=== PATIENT | female | born 1930 | race Caucasian/White ===

== ENCOUNTER 2016-10-20 12:28 | Inpatient (IN) | payer OTHER, BC ==
[2016-10-16 11:08] VITALS: BMI 28.3
--- NOTE | 2016-10-20 12:29 | HP ---
History & Physical Update - History History: No Change - Physical Physical: No Change - Assessment Assessment: No Change - Plan Plan: No Change (Initial h&p is in patient's paper chart. Completed 10/16/[address] Carlo Bansal)
[2016-10-20] MEDS ORDERED: HEPARIN INFUSION - 500 ML IVPB ONE (14:12)
[2016-10-20] MEDS ORDERED: PROPOFOL 20 ML ONE ×3 (14:16)
[2016-10-20] MEDS ORDERED: HEPARIN NA (PORCINE) 5,000 UNITS/ML 1ML VIAL ONE ×4 (14:32→16:36)
[2016-10-20] MEDS ORDERED: MIDAZOLAM HCL 2 MG/2 ML SINGLE DOSE VIAL ONE ×3 (14:36→16:26)
[2016-10-20] MEDS ORDERED: SODIUM CHLORIDE IVPB ONE (14:45)
[2016-10-20] MEDS ORDERED: ALTEPLASE 50MG 25 MG in SODIUM CHLORIDE 250 ML IVPB ONE (14:45)
[2016-10-20] MEDS ORDERED: ALTEPLASE IVPB ONE (14:45)
[2016-10-20] MEDS: HEPARIN INFUSION - 500 ML IVPB SCH (14:50)
[2016-10-20] MEDS ORDERED: ceFAZolin SODIUM 1 GM VIAL ONE (15:07)
[2016-10-20] MEDS ORDERED: ceFAZolin SODIUM 1 GM VIAL IVPB ONE (15:09)
[2016-10-20] MEDS ORDERED: LIDOCAINE HCL 1%, 10 MG/ML (50 mL VIAL) IJ ONE ×2 (15:10)
[2016-10-20] MEDS ORDERED: GLYCOPYRROLATE 0.2 MG/1 ML VIAL ONE (15:20)
[2016-10-20] MEDS ORDERED: SODIUM CHLORIDE 0.9% P/F 10 ML VIAL IJ ONE (16:22)
[2016-10-20] MEDS ORDERED: IOHEXOL 300 MG/ML INFUS..BTL IV ONE (16:52)
--- NOTE | 2016-10-20 17:02 | HP ---
Admitting History and Physical - Admission History of Present Illness: 86 year old female with recent DVT of left leg. She was started on anticoagulation and discharged. She has continued to have severe edema of the entire left leg. History Source: Patient Limitations to Obtaining History: No Limitations - Smoking History Smoking history: Never smoked Have you smoked in the past 12 months: No Aproximately how many cigarettes per day: 0 - Alcohol/Substance Use Hx Alcohol Use: No Home Medications - Allergies Allergies/Adverse Reactions: Allergies Allergy/AdvReac Type Severity Reaction Status Date / Time Stock Ragweed Pollen Mixture Allergy Mild Cough Verified 09/22/16 15:26 No Known Drug Allergies Allergy Verified 09/22/16 15:26 - Home Medications Home Medications: Ambulatory Orders Paroxetine HCl [Paxil -] 20 mg PO DAILY 02/13/14 Pantoprazole Sodium [Protonix] 40 mg PO DAILY 09/22/16 Amlodipine Besylate [Norvasc -] 2.5 mg PO DAILY 10/16/16 Apixaban [Eliquis] 5 mg PO BID 10/16/16 Physical Examination Vital Signs: Vital Signs Temperature 97.9 F 10/20/16 13:12 Pulse Rate 62 10/20/16 13:12 Respiratory Rate 18 10/20/16 13:12 Blood Pressure 120/60 10/20/16 13:12 O2 Sat by Pulse Oximetry (%) 100 10/20/16 13:20 Constitutional: Yes: No Distress Eyes: Yes: WNL HENT: Yes: WNL Neck: Yes: Supple Cardiovascular: Yes: Regular Rate and Rhythm Respiratory: Yes: Regular, CTA Bilaterally Gastrointestinal: Yes: Normal Bowel Sounds, Soft Edema: Yes Edema: LLE: 4+ Problem List - Problems (1) Deep vein thrombosis (DVT) of left iliofemoral vein Assessment/Plan: Severe edema with evidence for iliofemoral DVT. Plan thrombolysis with TPA and EKOS. Code(s): I82.422 - ACUTE EMBOLISM AND THROMBOSIS OF LEFT ILIAC VEIN
[2016-10-20] MEDS ORDERED: oxyCODONE HCL 5 MG TABLET PO PRN (17:17)
[2016-10-20] MEDS ORDERED: ONDANSETRON 4 MG/2 ML VIAL IVPUSH PRN (17:17)
--- NOTE | 2016-10-20 17:20 | OP ---
Operative Note - Note: Operative Date: 10/20/16 Pre-Operative Diagnosis: DVT left leg Operation: Percutaneous thrombolysis and thrombectomy left iliofemoral vein and IVC. Placement of EKOS catheter. Findings: Patent left femoral and popliteal veins. Thrombotic occlusion of left common femoral and iliac vein. Partial thrombosis of right common iliac and distal IVC to level of leftt renal vein. Post-Operative Diagnosis: Same as Pre-op Surgeon: Neto Wheeler Gifted Program Teacher: Jennifer Reyes Anesthesiologist/HVAC MAINTENANCE TECHNICIAN: Derrick Horan Anesthesia: Fractional Estimated Blood Loss (mls): 10
--- NOTE | 2016-10-20 17:24 | SURG ---
Surgery Adult Services Librarian Note Adult Services Librarian: Jennifer Reyes PA-C Date of Service: 10/20/16 Diagnosis: DVT left leg. Procedure: Percutaneous thrombolysis and thrombectomy left iliofemoral vein and IVC. Placement of EKOS catheter. I was present for the entirety of the operative procedure. For further detail, please refer to operative report. Visit type - Case Type Case Type: Scheduled Admission - New patient This patient is new to me today: Yes Date on this admission: 10/20/16
--- NOTE | 2016-10-20 17:26 | CONSULT ---
Consult Consult Specialty:: Vascular surgery Referred by:: Dr. Wheeler Reason for Consultation:: s/p thrombectomy on heparin and tpa gtt - History of Present Illness Chief Complaint: post op History of Present Illness: 86 F PMH of HTN GERD Raynauds and DVT in the left leg went to OR today for leg leg thrombectomy with TPA thrombysis and EKOS device after persistent swelling of leg and no relief with eliquis. The DVT extends from left common femoral to IVC. She denies nausea vomiting fevers chills chest pain or sob. Denies pain has no complaints. Walks without assistance at baseline. - History Source History Provided By: Patient, Medical Record Limitations to Obtaining History: No Limitations - Past Medical History Cardio/Vascular: Yes: HTN Gastrointestinal: Yes: GERD Rheumatology: Yes: Other (Raynauds ) - Alcohol/Substance Use Hx Alcohol Use: No - Smoking History Smoking history: Never smoked Have you smoked in the past 12 months: No Aproximately how many cigarettes per day: 0 Home Medications - Allergies Allergies/Adverse Reactions: Allergies Allergy/AdvReac Type Severity Reaction Status Date / Time Stock Ragweed Pollen Mixture Allergy Mild Cough Verified 09/22/16 15:26 No Known Drug Allergies Allergy Verified 09/22/16 15:26 - Home Medications Home Medications: Ambulatory Orders Paroxetine HCl [Paxil -] 20 mg PO DAILY 02/13/14 Pantoprazole Sodium [Protonix] 40 mg PO DAILY 09/22/16 Amlodipine Besylate [Norvasc -] 2.5 mg PO DAILY 10/16/16 Apixaban [Eliquis] 5 mg PO BID 10/16/16 Review of Systems - Review of Systems Constitutional: reports: No Symptoms Eyes: reports: No Symptoms HENT: reports: No Symptoms Neck: reports: No Symptoms Cardiovascular: reports: No Symptoms Respiratory: reports: No Symptoms, Other Genitourinary: reports: No Symptoms Musculoskeletal: reports: No Symptoms Integumentary: reports: No Symptoms Neurological: reports: No Symptoms Endocrine: reports: No Symptoms Hematology/Lymphatic: reports: Other (Left Leg DVT and swelling) Physical Exam Vital Signs: Vital Signs Temperature 97.9 F 10/20/16 13:12 Pulse Rate 62 10/20/16 13:12 Respiratory Rate 18 10/20/16 13:12 Blood Pressure 120/60 10/20/16 13:12 O2 Sat by Pulse Oximetry (%) 100 10/20/16 13:20 Constitutional: Yes: Well Nourished, No Distress Eyes: Yes: WNL, EOM Intact, PERRL HENT: Yes: WNL Neck: Yes: WNL, Supple Cardiovascular: Yes: WNL, Regular Rate and Rhythm Respiratory: Yes: WNL, Regular, CTA Bilaterally Gastrointestinal: Yes: WNL, Normal Bowel Sounds Renal/: Yes: Kraft Present, Hematuria (wine colored hematuria to be expected per vascular surgery) Musculoskeletal: Yes: WNL Edema: Yes Edema: LLE: 2+ (non pitting ) Peripheral Pulses WNL: Yes (2+ RLE DP LLE DP not palpated but leg warm with good capillary refill ) Wound/Incision: Yes: Clean/Dry, Other (EKOS in place) Neurological: Yes: WNL, Alert ...Motor Strength: WNL Assessment/Plan 86F POD 0 after LLE thrombectomy and catheter directed thrombolysis. Received patient in hypertensive urgency from OR. LLE DVT s/p thrombectomy with TPA thrombolysis Continue TPA and hep gtt without titration Check PTT CBC and Fibrinogen q6h Will contact Dr. Wheeler for any issues [phone] EKOS device to go back to OR in 24 hours will keep NPO Hypertensive urgency/HTN Patient took norvasc in AM will give labetalol IVP and PRN Restart norvasc Hematuria: red wine colored urine to be expected per vascular sx will monitor for gross hematuria GERD: Restart Protonix PO Raynauds: stable FEN: start d5 1/2 NS @ 42 patient receiving 55ml/hr from gtts no electrolyte issues BNP in AM NPO except meds PPx: on Hep gtt and tpa gtt Protonix PO Bed rest for now CCT: 60 min
[2016-10-20] MEDS ORDERED: DEXTROSE 5%-0.45% SALINE 1,000 ML IV SCH ×2 (17:30→17:49)
[2016-10-20] MEDS ORDERED: LABETALOL HCL 5 MG/1 ML (100MG/20 ML VIAL) IVPUSH ONE ×2 (17:32→18:39)
[2016-10-20] MEDS ORDERED: LABETALOL HCL 5 MG/1 ML (100MG/20 ML VIAL) ONE (17:36)
[2016-10-20] MEDS ORDERED: HEPARIN NA (PORCINE) 5,000 UNITS/ML 1ML VIAL IVPUSH PRN ×2 (18:48)
[2016-10-20 18:50] LABS: MCH 30.3 pg (25.7-33.7); MCHC 32.8 g/dl (32.0-36.0); MEAN CELL VOLUME 92.5 fl (80-96); MEAN PLT VOLUME 8.9 fl (7.5-11.1); PLATELET COUNT 219 K/MM3 (134-434); RDW 14.4 % (11.6-15.6); WHITE BLOOD COUNT 7.4 K/mm3 (4.0-10.0)
[2016-10-20] MEDS: DEXTROSE 5%-0.45% SALINE 1,000 ML IV SCH (18:51)
--- NOTE | 2016-10-20 20:30 | CONSULT ---
Consult Consult Specialty:: Pulm/CC - History of Present Illness History of Present Illness: Pt is an 86yr old woman with PMHx of HTN, Raynauds syndrome, GERD. Pt with recent DVT of left leg, with inadequate response to anticoagulation therapy. She now presents to the ICU s/p percutaneous thrombolysis and thrombectomy of the left iliofemoral vein/IVC, and placement of an EKOS catheter for recovery. Upon assessment, pt denies chest pain/sob/headache/n/v/discomfort to leg. - History Source History Provided By: Patient, Medical Record Limitations to Obtaining History: No Limitations - Past Medical History Cardio/Vascular: Yes: HTN Gastrointestinal: Yes: GERD Rheumatology: Yes: Other (Raynauds ) - Alcohol/Substance Use Hx Alcohol Use: No - Smoking History Smoking history: Never smoked Have you smoked in the past 12 months: No Aproximately how many cigarettes per day: 0 Home Medications - Allergies Allergies/Adverse Reactions: Allergies Allergy/AdvReac Type Severity Reaction Status Date / Time Stock Ragweed Pollen Mixture Allergy Mild Cough Verified 09/22/16 15:26 No Known Drug Allergies Allergy Verified 09/22/16 15:26 - Home Medications Home Medications: Ambulatory Orders Paroxetine HCl [Paxil -] 20 mg PO DAILY 02/13/14 Pantoprazole Sodium [Protonix] 40 mg PO DAILY 09/22/16 Amlodipine Besylate [Norvasc -] 2.5 mg PO DAILY 10/16/16 Apixaban [Eliquis] 5 mg PO BID 10/16/16 Review of Systems - Review of Systems Cardiovascular: denies: Chest Pain, Shortness of Breath Gastrointestinal: reports: Diarrhea (2 days ago) Genitourinary: denies: Dysuria Neurological: denies: Headache Physical Exam Vital Signs: Vital Signs Period Temp Pulse Resp BP Sys/Nassar Pulse Ox Last 24 Hr 97.7 F-98.0 F 62-68 16-22 120-188/60-87 98-100 Intake & Output 10/17/16 10/18/16 10/19/16 10/20/16 23:59 23:59 23:59 23:59 Intake Total 870 Output Total 350 Balance 520 Constitutional: Yes: Well Nourished, No Distress, Calm Eyes: Yes: WNL, PERRL HENT: Yes: WNL Neck: Yes: WNL Cardiovascular: Yes: Pulse Irregular (intermittently irregular), S1, S2 Respiratory: Yes: Diminished (slightly bilaterally), On Nasal O2, Other (100% on 2LNC). No: Rhonchi, SOB, Wheezes Gastrointestinal: Yes: Normal Bowel Sounds, Soft. No: Tenderness ...Rectal Exam: Yes: Deferred Renal/: Yes: Kraft Present, Other (hematuria/wine colored output in bag. per previous note, consistent with surgical procedure) Musculoskeletal: Yes: Other (s/p lle thrombectomy) Extremities: Yes: Calf Tenderness, Erythema, Other (chronic RLE tenderness,) Edema: Yes Edema: LLE: 3+ Peripheral Pulses WNL: Yes (+2 rt pedal, +1 left pedal) Wound/Incision: Yes: Bleeding (bronson, RN states she informed Dr. Wheeler), Other (pressure dressing for bleeding at site. leg with soft brace.) Neurological: Yes: WNL Psychiatric: Yes: WNL Labs: Abnormal Lab Results 10/20/16 17:40 RBC 3.58 L Imaging - Results Chest X-ray: Pending (none, will do chest xray in a.m to access for congestion) Assessment/Plan Pt is an 86yr old woman with PMHx of HTN, Raynauds syndrome, GERD. Now in the ICU s/p percutaneous thrombolysis and thrombectomy of the left iliofemoral vein /IVC, and placement of an EKOS catheter. Pulm: -o2 support prn for sat >94% -Incentive spirometr -f/u chest xray ID: -f/u cultures -One dose given perioperatively of Unasyn, consider continuing Surgery: -Dr. Wheeler following -Wound/Surgical care, Alteplase, IVF per surgeon -Pulse checks q2 Cardiovascular: -BP control -monitor h/h Renal: -I/Os -Replete electrolytes prn Neuro: -Pain management -Continue home Paxil Prophylactic -Continue home ppi
[2016-10-20] MEDS: METOPROLOL TARTRATE 5 MG/5 ML VIAL IVPUSH ONE ×2 (22:13→23:00)
[2016-10-20] MEDS: CHLORHEXIDINE GLUCONATE 4% CLEANSER FOR DECOLONIZATION TP SCH (22:14)
[2016-10-20] MEDS: MUPIROCIN 2% TOPICAL OINTMENT FOR DECOLONIZATION NS SCH (22:15)
[2016-10-21] MEDS ORDERED: LIDOCAINE HCL 1%, 10 MG/ML (20ML VIAL) IJ ONE
[2016-10-21 00:58] LABS: MCH 29.7 pg (25.7-33.7); MCHC 32.6 g/dl (32.0-36.0); MEAN CELL VOLUME 91.3 fl (80-96); MEAN PLT VOLUME 9.3 fl (7.5-11.1); PLATELET COUNT 194 K/MM3 (134-434); RDW 14.6 % (11.6-15.6); WHITE BLOOD COUNT 7.6 K/mm3 (4.0-10.0)
[2016-10-21] MEDS ORDERED: morphine CARPU-JECT 2 MG/1 ML DISP.SYRIN IVPUSH ONE (04:45)
[2016-10-21 07:10] LABS: MCH 29.9 pg (25.7-33.7); MCHC 32.5 g/dl (32.0-36.0); MEAN CELL VOLUME 92.2 fl (80-96); MEAN PLT VOLUME 9.3 fl (7.5-11.1); PLATELET COUNT 171 K/MM3 (134-434); RDW 14.8 % (11.6-15.6); WHITE BLOOD COUNT 7.9 K/mm3 (4.0-10.0)
[2016-10-21 07:25] LABS: INR 1.15 (0.82-1.09); PROTHROMBIN TIME (PATIENT) 12.7 SEC (9.98-11.88)
[2016-10-21 07:27] LABS: ACTIVATED PTT 33.3 SECONDS (26.9-34.4)
[2016-10-21 07:53] LABS: CALCIUM 8.3 mg/dL (8.5-10.1); CREATININE 1.3 mg/dL (0.55-1.02); MAGNESIUM 1.8 mg/dL (1.8-2.4); PHOSPHOROUS 3.6 mg/dL (2.5-4.9)
--- NOTE | 2016-10-21 08:14 | PN ---
Progress Note (short form) - Note Progress Note: Vascular surgery Patient seen and examined this morning. Patient resting comfortably with no complaints. Denies pain in LLE, states her swelling has improved. Last Vital Signs Temp Pulse Resp BP Pulse Ox 98 F 62 18 109/38 96 10/21/16 06:00 10/21/16 08:00 10/21/16 08:00 10/21/16 08:00 10/21/16 06:00 CBC, BMP 10/21/16 05:27 10/21/16 05:27 INR, PTT INR 1.15 (0.82-1.09) H 10/21/16 05:27 Fibrinogen 303.0 mg/dL (238-498) 10/21/16 00:01 PE: Gen: NAD, pleasant and cooperative LLE: EKOS catheter in place, knee immobilizer in place, LE warm and well perfused : Kraft catheter in place, gross hematuria improving Problem List - Problems (1) DVT (deep venous thrombosis) Assessment/Plan: POD#1 s/p left iliofemoral vein and IVC percutaneous thrombolysis and thrombectomy with placement of EKOS catheter Plan for return to OR this afternoon for venogram/possible stent/venoplasty/ and removal of EKOS catheter Continue NPO Bedrest with knee immobilizer Continue TPA and hep gtt, PTT/CBC/Fibrinogen q6h Continue Kraft Code(s): I82.409 - ACUTE EMBOLISM AND THOMBOS UNSP DEEP VN UNSP LOWER EXTREMITY Qualifiers: DVT location: lower extremity
[2016-10-21 08:26] LABS: TROPONIN I 9.96 ng/ml (0.00-0.05)
[2016-10-21] MEDS ORDERED: ASPIRIN COATED 81 MG TABLET.EC ONE (08:43)
[2016-10-21] MEDS ORDERED: ASPIRIN 325 MG TABLET PO ONE (08:45)
[2016-10-21] MEDS ORDERED: METOPROLOL SUCCINATE 25 MG TAB.SR.24H (FP) ONE (08:58)
[2016-10-21] MEDS: METOPROLOL SUCCINATE 25 MG TAB.SR.24H (FP) PO SCH (08:59)
[2016-10-21] MEDS: MUPIROCIN 2% TOPICAL OINTMENT FOR DECOLONIZATION NS SCH ×2 (09:33→21:47)
[2016-10-21] MEDS: PANTOPRAZOLE 40 MG TABLET (FP) PO SCH (09:33)
[2016-10-21] MEDS: amLODIPine BESYLATE 2.5 MG TABLET (FP) PO SCH (09:33)
[2016-10-21] MEDS: ASPIRIN 81 MG CHEWABLE TABLETS PO SCH (10:38)
--- NOTE | 2016-10-21 11:02 | PN ---
Progress Note, Physician History of Present Illness: patient had Chest pain around 5AM found to have elevated troponin and EKG changes Given aspirin 81mg this AM started on metoprolol Echo ordered denies CP at this time - Current Medication List Current Medications: Active Medications Amlodipine Besylate (Norvasc -) 2.5 mg PO DAILY [facility] Last Admin: 10/21/16 09:33 Dose: 2.5 mg Aspirin (Asa -) 81 mg PO DAILY [facility] Last Admin: 10/21/16 10:38 Dose: 81 mg Chlorhexidine Gluconate (Hibiclens For Decolonization -) 1 applic TP HS [facility] Last Admin: 10/20/16 22:14 Dose: 1 applic Heparin Sodium (Porcine) (Heparin -) 1,000 unit IVPUSH PRN PRN PRN Reason: Heparin Heparin Sodium (Porcine) (Heparin -) 5,000 unit IVPUSH PRN PRN PRN Reason: Heparin Alteplase, Recombinant 25 mg/ (Sodium Chloride) 250 mls @ 10.417 mls/hr IVPB TITR ONE Stop: 10/21/16 14:44 Last Admin: 10/20/16 14:50 Dose: 10.417 mls/hr Dextrose/Sodium Chloride (D5-1/2ns -) 1,000 mls @ 50 mls/hr IV ASDIR [facility] Last Admin: 10/20/16 18:51 Dose: 50 mls/hr Heparin Sodium/Dextrose (Heparin Infusion -) 500 mls @ 10 mls/hr IVPB TITR [facility] ; 500 UNITS/HR PRN Reason: Protocol Last Admin: 10/20/16 14:50 Dose: 10 mls/hr Metoprolol Succinate (Toprol Xl -) 25 mg PO DAILY [facility] Last Admin: 10/21/16 08:59 Dose: 25 mg Mupirocin (Bactroban Ointment (For Decolonization) -) 1 applic NS BID [facility] Stop: 10/25/16 21:59 Last Admin: 10/21/16 09:33 Dose: 1 applic Oxycodone HCl (Roxicodone -) 5 mg PO Q6H PRN PRN Reason: PAIN Last Admin: 10/21/16 00:16 Dose: 5 mg Pantoprazole Sodium (Protonix -) 40 mg PO DAILY [facility] Last Admin: 10/21/16 09:33 Dose: 40 mg - Objective Vital Signs: Vital Signs Temperature 99 F 12/28/16 10:00 Pulse Rate 61 10/21/16 10:22 Respiratory Rate 18 10/21/16 10:00 Blood Pressure 110/36 10/21/16 10:00 O2 Sat by Pulse Oximetry (%) 96 10/21/16 10:22 Constitutional: Yes: Well Nourished, No Distress Eyes: Yes: WNL, EOM Intact, PERRL HENT: Yes: WNL Neck: Yes: WNL, Supple Cardiovascular: Yes: WNL, Regular Rate and Rhythm Respiratory: Yes: WNL, Regular, CTA Bilaterally Gastrointestinal: Yes: WNL, Normal Bowel Sounds Renal/: Yes: Kraft Present, Hematuria cleared Musculoskeletal: Yes: WNL Edema: Yes Edema: LLE: 2+ (non pitting ) Peripheral Pulses WNL: Yes (2+ RLE DP LLE DP not palpated but leg warm with good capillary refill ) Wound/Incision: Yes: Clean/Dry, Other (EKOS in place) Neurological: Yes: WNL, Alert ...Motor Strength: WNL Labs: CBC, BMP 10/21/16 05:27 10/21/16 05:27 INR, PTT INR 1.15 (0.82-1.09) H 10/21/16 05:27 Fibrinogen 254.0 mg/dL (238-498) 10/21/16 05:27 Assessment/Plan 86F POD 0 after LLE thrombectomy and catheter directed thrombolysis. Received patient in hypertensive urgency from OR. ACS questionable NSTEMI will Give Aspirin ECHO Metoprolol patient on TPA and hep gtt will continue and will medically manage ACS for now will trend enzymes to document peak persantine myoview once vascular issues resolved Cardiology consult Dr. Keating aware Dr. wheeler aware possible patient could have a PE will get CTA tomorrow if Cr goes back down LLE DVT s/p thrombectomy with TPA thrombolysis Continue TPA and hep gtt without titration Check PTT CBC and Fibrinogen q6h Will contact Dr. Wheeler for any issues [phone] EKOS device to go back to OR today will keep NPO JJ: likely prerenal will monitor for now IVF hydration Hypertensive urgency/HTN Patient took norvasc in AM will give labetalol IVP and PRN Restart norvasc Hematuria: red wine colored urine to be expected per vascular sx resolving GERD: Restart Protonix PO Raynauds: stable FEN: continue d5 1/2 NS @ 50 patient also receiving 55ml/hr from gtts no electrolyte issues BNP in AM NPO except meds PPx: on Hep gtt and tpa gtt Protonix PO Bed rest for now CCT: 60 min
--- NOTE | 2016-10-21 11:10 | PN ---
Progress Note, Physician Chief Complaint: s/p angiography and thrombectomy under MAC History of Present Illness: post op day one - Current Medication List Current Medications: Active Medications Amlodipine Besylate (Norvasc -) 2.5 mg PO DAILY [facility] Last Admin: 10/21/16 09:33 Dose: 2.5 mg Aspirin (Asa -) 81 mg PO DAILY [facility] Last Admin: 10/21/16 10:38 Dose: 81 mg Chlorhexidine Gluconate (Hibiclens For Decolonization -) 1 applic TP HS [facility] Last Admin: 10/20/16 22:14 Dose: 1 applic Heparin Sodium (Porcine) (Heparin -) 1,000 unit IVPUSH PRN PRN PRN Reason: Heparin Heparin Sodium (Porcine) (Heparin -) 5,000 unit IVPUSH PRN PRN PRN Reason: Heparin Alteplase, Recombinant 25 mg/ (Sodium Chloride) 250 mls @ 10.417 mls/hr IVPB TITR ONE Stop: 10/21/16 14:44 Last Admin: 10/20/16 14:50 Dose: 10.417 mls/hr Dextrose/Sodium Chloride (D5-1/2ns -) 1,000 mls @ 50 mls/hr IV ASDIR [facility] Last Admin: 10/20/16 18:51 Dose: 50 mls/hr Heparin Sodium/Dextrose (Heparin Infusion -) 500 mls @ 10 mls/hr IVPB TITR [facility] ; 500 UNITS/HR PRN Reason: Protocol Last Admin: 10/20/16 14:50 Dose: 10 mls/hr Metoprolol Succinate (Toprol Xl -) 25 mg PO DAILY [facility] Last Admin: 10/21/16 08:59 Dose: 25 mg Mupirocin (Bactroban Ointment (For Decolonization) -) 1 applic NS BID [facility] Stop: 10/25/16 21:59 Last Admin: 10/21/16 09:33 Dose: 1 applic Oxycodone HCl (Roxicodone -) 5 mg PO Q6H PRN PRN Reason: PAIN Last Admin: 10/21/16 00:16 Dose: 5 mg Pantoprazole Sodium (Protonix -) 40 mg PO DAILY [facility] Last Admin: 10/21/16 09:33 Dose: 40 mg - Objective Vital Signs: Vital Signs Temperature 99 F 10/21/16 10:00 Pulse Rate 61 10/21/16 10:22 Respiratory Rate 18 10/21/16 10:00 Blood Pressure 110/36 10/21/16 10:00 O2 Sat by Pulse Oximetry (%) 96 10/21/16 10:22 Constitutional: Yes: Well Nourished Cardiovascular: Yes: WNL Respiratory: Yes: WNL Gastrointestinal: Yes: WNL Labs: CBC, BMP 10/21/16 05:27 10/21/16 05:27 INR, PTT INR 1.15 (0.82-1.09) H 10/21/16 05:27 Fibrinogen 254.0 mg/dL (238-498) 10/21/16 05:27 Assessment/Plan patient doing well, no adverse effects of ethe anesthetic, no nausea, vomiting, pain controlled. dept of anesthesia will sign off care at this time
[2016-10-21 12:00] LABS: MCH 30.7 pg (25.7-33.7); MCHC 33.1 g/dl (32.0-36.0); MEAN CELL VOLUME 92.7 fl (80-96); MEAN PLT VOLUME 8.5 fl (7.5-11.1); PLATELET COUNT 150 K/MM3 (134-434); RDW 14.8 % (11.6-15.6); WHITE BLOOD COUNT 7.1 K/mm3 (4.0-10.0)
--- NOTE | 2016-10-21 12:00 | CONSULT ---
Consult Consult Specialty:: Cardiology Referred by:: Neto Wheeler MD Reason for Consultation:: Post-procedure NSTEMI - History of Present Illness Chief Complaint: Chest pain History of Present Illness: Pt is an 86yr old woman with PMHx of HTN, Raynauds syndrome, GERD, recent DVT of left leg, with inadequate response to anticoagulation therapy for which she underwent percutaneous thrombolysis and thrombectomy of the left iliofemoral vein/IVC, and placement of an EKOS catheter for recovery. Overnight developed chest tightness since resolved without associated dyspnea, palpitations, near or true syncope, orthopnea, PND or LE edema. She does report episode of retrosternal chest pressure, choking and dyspnea prior to procedure. - History Source History Provided By: Patient Limitations to Obtaining History: No Limitations - Past Medical History Cardio/Vascular: Yes: HTN Gastrointestinal: Yes: GERD Rheumatology: Yes: Other (Raynauds ) - Alcohol/Substance Use Hx Alcohol Use: No - Smoking History Smoking history: Never smoked Have you smoked in the past 12 months: No Aproximately how many cigarettes per day: 0 Home Medications - Allergies Allergies/Adverse Reactions: Allergies Allergy/AdvReac Type Severity Reaction Status Date / Time Stock Ragweed Pollen Mixture Allergy Mild Cough Verified 09/22/16 15:26 No Known Drug Allergies Allergy Verified 09/22/16 15:26 - Home Medications Home Medications: Ambulatory Orders Paroxetine HCl [Paxil -] 20 mg PO DAILY 02/13/14 Pantoprazole Sodium [Protonix] 40 mg PO DAILY 09/22/16 Amlodipine Besylate [Norvasc -] 2.5 mg PO DAILY 10/16/16 Apixaban [Eliquis] 5 mg PO BID 10/16/16 Review of Systems - Review of Systems Cardiovascular: reports: Chest Pain, Shortness of Breath Vital Signs: Vital Signs Temperature 99 F 10/21/16 10:00 Pulse Rate 61 10/21/16 10:22 Respiratory Rate 18 10/21/16 10:00 Blood Pressure 110/36 10/21/16 10:00 O2 Sat by Pulse Oximetry (%) 96 10/21/16 10:22 Constitutional: Yes: No Distress, Calm, Thin Respiratory: Yes: Regular, Diminished, On Nasal O2 Gastrointestinal: Yes: Normal Bowel Sounds, Soft Cardiovascular: Yes: Regular Rate and Rhythm JVD: No Carotid Bruit: No Heart Sounds: Yes: S1, S2 Murmur: Yes: Systolic Murmur, Grade 1 Edema: No - Other Data Labs, Other Data: CBC, BMP 10/21/16 05:27 INR, PTT INR 1.15 (0.82-1.09) H 10/21/16 05:27 Fibrinogen 254.0 mg/dL (238-498) 10/21/16 05:27 Troponin, BNP 10/20/16 10/21/16 10/21/16 20:45 05:27 05:27 Troponin I Cancelled 9.96 H* Cancelled Troponin, BNP 10/20/16 10/21/16 10/21/16 20:45 05:27 05:27 Troponin I Cancelled 9.96 H* Cancelled NSR inferior ischemic changes Ejection Fraction %: LVEF > or = 40 % Imaging - Results Chest X-ray: Report Reviewed (Mild congestion) Problem List - Problems (1) Deep vein thrombosis (DVT) of left iliofemoral vein Code(s): I82.422 - ACUTE EMBOLISM AND THROMBOSIS OF LEFT ILIAC VEIN (2) Pulmonary embolus Code(s): I26.99 - OTHER PULMONARY EMBOLISM WITHOUT ACUTE COR PULMONALE Qualifiers: Pulmonary embolism type: other Chronicity: acute (3) Demand ischemia Code(s): I24.8 - OTHER FORMS OF ACUTE ISCHEMIC HEART DISEASE (4) Hypertension Code(s): I10 - ESSENTIAL (PRIMARY) HYPERTENSION Qualifiers: Hypertension type: essential hypertension Qualified Code(s): I10 - Essential (primary) hypertension (5) [id number] kidney injury Code(s): N17.9 - ACUTE KIDNEY FAILURE, UNSPECIFIED N18.9 - CHRONIC KIDNEY DISEASE, UNSPECIFIED Assessment/Plan 09/23/2016 Echo: Normal LV size and fxn, mod-severe MAX, mod MR, severe TR, RVSP 50-60 mmHg, mild AR 1. Chest pain syndrome with demand ischemic injury suspect pulmonary embolism 2. Extensive left DVT post thrombolysis and thrombectomy left iliofemoral vein and IVC. Placement of EKOS catheter. 3. HTN 4. Acute on CKD referable to hemodynamic alterations P:1. Cycle cardiac enzymes to document peak, check BNP, monitor renal recovery 2. Echo to assess ventricular and valve fxn 3. ASA 81 qd, Norvasc 2.5 qd, Toprol XL 25 qd, heparin and TPA course per vascular, eventually resume Eliquis 5 bid 4. Repeat chest CTA once clinically stable 5. Thank you for consultative opportunity
[2016-10-21 12:41] LABS: TROPONIN I 7.48 ng/ml (0.00-0.05)
[2016-10-21] MEDS ORDERED: BACITRACIN 30 GM TUBE TOPICAL OINTMENT ONE (13:13)
--- NOTE | 2016-10-21 14:33 | PN ---
Teaching Attending Note Name of Resident: Jani Corral ATTENDING PHYSICIAN STATEMENT I saw and evaluated the patient. I reviewed the resident's note and discussed the case with the resident. I agree with the resident's findings and plan as documented. SUBJECTIVE: Pt seen and examined in the ICU. Chest discomfort overnight. Troponins positive this AM, questionable changes in inferior leads. OBJECTIVE: Last Vital Signs Temp Pulse Resp BP Pulse Ox 99 F 66 16 107/36 96 10/21/16 10:00 10/21/16 14:00 10/21/16 14:00 10/21/16 14:00 10/21/16 10:22 Intake & Output 10/18/16 10/19/16 10/20/16 10/21/16 23:59 23:59 23:59 23:59 Intake Total 1350 870 Output Total 550 400 Balance 800 470 Weight 163 lb 11.2 oz 162 lb Gen: NAD at rest Heart: RRR Lung: decreased breath sounds at the bases Abd: soft, nontender Ext: no edema CBC, BMP 10/21/16 11:45 10/21/16 05:27 Active Medications Amlodipine Besylate (Norvasc -) 2.5 mg PO DAILY [facility] Last Admin: 10/21/16 09:33 Dose: 2.5 mg Aspirin (Asa -) 81 mg PO DAILY [facility] Last Admin: 10/21/16 10:38 Dose: 81 mg Chlorhexidine Gluconate (Hibiclens For Decolonization -) 1 applic TP HS [facility] Last Admin: 10/20/16 22:14 Dose: 1 applic Heparin Sodium (Porcine) (Heparin -) 1,000 unit IVPUSH PRN PRN PRN Reason: Heparin Heparin Sodium (Porcine) (Heparin -) 5,000 unit IVPUSH PRN PRN PRN Reason: Heparin Alteplase, Recombinant 25 mg/ (Sodium Chloride) 250 mls @ 10.417 mls/hr IVPB TITR ONE Stop: 10/21/16 14:44 Last Admin: 10/20/16 14:50 Dose: 10.417 mls/hr Dextrose/Sodium Chloride (D5-1/2ns -) 1,000 mls @ 50 mls/hr IV ASDIR NENO Last Admin: 10/20/16 18:51 Dose: 50 mls/hr Heparin Sodium/Dextrose (Heparin Infusion -) 500 mls @ 10 mls/hr IVPB TITR NENO ; 500 UNITS/HR PRN Reason: Protocol Last Admin: 10/20/16 14:50 Dose: 10 mls/hr Metoprolol Succinate (Toprol Xl -) 25 mg PO DAILY [facility] Last Admin: 10/21/16 08:59 Dose: 25 mg Mupirocin (Bactroban Ointment (For Decolonization) -) 1 applic NS BID [facility] Stop: 10/25/16 21:59 Last Admin: 10/21/16 09:33 Dose: 1 applic Oxycodone HCl (Roxicodone -) 5 mg PO Q6H PRN PRN Reason: PAIN Last Admin: 10/21/16 00:16 Dose: 5 mg Pantoprazole Sodium (Protonix -) 40 mg PO DAILY [facility] Last Admin: 10/21/16 09:33 Dose: 40 mg Pneumococcal 13-Valent Conj Vacc (Prevnar 13 Syringe -) 0.5 ml IM .ONCE ONE Stop: 10/21/16 11:54 ASSESSMENT AND PLAN: Extensive LLE DVT s/p thrombectomy/thrombolysis Likely PE +Troponins likely from demand ischemia vs PE Pulmonary HTN Acute on Chronic Renal Failure HTN - continue tPA, heparin - resume ASA when ok with surgery - beta cynthia, statin - for OR today for catheter removal - IVF - monitor urine output, creatinine - will consider CTA chest when renal function improves - trend cardiac enzymes, EKGs - echocardiogram - O2 - nitrates as needed - continue ICU montoring
[2016-10-21] MEDS ORDERED: PNEUMOC 13-VAL CONJ-DIP CRM/PF 0.5 ML DISP.SYRIN IM ONE (16:45)
--- NOTE | 2016-10-21 17:04 | EKG ---
Test Reason : Blood Pressure : / mmHG Vent. Rate : 063 BPM Atrial Rate : 063 BPM P-R Int : 144 ms QRS Dur : 080 ms QT Int : 470 ms P-R-T Axes : 051 -05 092 degrees QTc Int : 480 ms NORMAL SINUS RHYTHM WITH SINUS ARRHYTHMIA LOW VOLTAGE QRS T WAVE ABNORMALITY, CONSIDER ANTERIOR ISCHEMIA PROLONGED QT ABNORMAL ECG NO PREVIOUS ECGS AVAILABLE Confirmed by SEGUNDO VELASCO, FABIANO ([id number]) on 10/21/2016 5:04:42 PM Referred By: Neto Wheeler Overread By: FABIANO RAYMOND MD
--- NOTE | 2016-10-21 17:06 | EKG ---
Test Reason : Blood Pressure : / mmHG Vent. Rate : 063 BPM Atrial Rate : 063 BPM P-R Int : 154 ms QRS Dur : 076 ms QT Int : 496 ms P-R-T Axes : 066 000 121 degrees QTc Int : 507 ms SINUS RHYTHM WITH MARKED SINUS ARRHYTHMIA LOW VOLTAGE QRS CANNOT RULE OUT ANTERIOR INFARCT , AGE UNDETERMINED ABNORMAL ECG WHEN COMPARED WITH ECG OF 21-OCT-2016 04:59, NO SIGNIFICANT CHANGE WAS FOUND Confirmed by SEGUNDO VELASCO, FABIANO ([id number]) on 10/21/2016 5:05:37 PM Referred By: Neto Wheeler Overread By: FABIANO RAYMOND MD
--- NOTE | 2016-10-21 17:13 | EKG ---
Test Reason : Blood Pressure : / mmHG Vent. Rate : 061 BPM Atrial Rate : 061 BPM P-R Int : 142 ms QRS Dur : 072 ms QT Int : 470 ms P-R-T Axes : 057 010 090 degrees QTc Int : 473 ms NORMAL SINUS RHYTHM WITH SINUS ARRHYTHMIA LOW VOLTAGE QRS CANNOT RULE OUT ANTERIOR INFARCT (CITED ON OR BEFORE 21-OCT-2016) ABNORMAL ECG WHEN COMPARED WITH ECG OF 21-OCT-2016 09:03, NO SIGNIFICANT CHANGE WAS FOUND Confirmed by FABIANO RAYMOND MD ([id number]) on 10/21/2016 5:13:23 PM Referred By: Neto Wheeler Overread By: FABIANO RAYMOND MD
[2016-10-21] MEDS ORDERED: MIDAZOLAM HCL 2 MG/2 ML SINGLE DOSE VIAL ONE ×2 (17:35)
[2016-10-21] MEDS ORDERED: PROPOFOL 20 ML ONE ×5 (17:36)
[2016-10-21] MEDS ORDERED: ceFAZolin SODIUM 1 GM VIAL IVPB ONE (17:53)
[2016-10-21] MEDS ORDERED: HEPARIN NA (PORCINE) 5,000 UNITS/ML 1ML VIAL ONE (18:14)
[2016-10-21] MEDS ORDERED: KETOROLAC TROMETHAMINE 30 MG/1 ML VIAL ONE (18:14)
[2016-10-21] MEDS ORDERED: ceFAZolin SODIUM 1 GM VIAL ONE (18:14)
[2016-10-21] MEDS ORDERED: ACETAMINOPHEN INJECTION 100 ML IVPB ONE (18:16)
[2016-10-21] MEDS ORDERED: LIDOCAINE 1%/EPI 1:100000 (50 ML MULTI DOSE VIAL) ONE (18:48)
[2016-10-21] MEDS ORDERED: LIDOCAINE 1%/EPI 1:100000 (50 ML MULTI DOSE VIAL) PNB ONE ×3 (19:00)
[2016-10-21] MEDS ORDERED: PROMETHAZINE HCL 25 MG/1 ML VIAL IVPUSH PRN (19:35)
[2016-10-21] MEDS ORDERED: ONDANSETRON 4 MG/2 ML VIAL IVPUSH PRN (19:35)
--- NOTE | 2016-10-21 19:38 | OP ---
Operative Note - Note: Operative Date: 10/21/16 Pre-Operative Diagnosis: DVT left femoral, iliac and IVC Operation: Completion venoplasty and stenting of left femoral and iliac veins and IVC. Findings: Following 24 hr TPA infusion there was partial lysis of left femoral and iliac thrombus. The IVC remained partially occluded distal to the renal veins. Implants: 16 mm x 60 mm Wall stent in left common iliac vein. 10 mm x 60 mm LifeStar stent in left external iliac and common femoral vein. Post-Operative Diagnosis: Same as Pre-op Surgeon: Neto Wheeler Pediatric Physical Therapy Assistant: Pat Juan Anesthesiologist/TOUCHER UP: Adria Swift Anesthesia: Fractional Estimated Blood Loss (mls): 50
[2016-10-21] MEDS: HEPARIN INFUSION - 500 ML IVPB SCH ×2 (20:00→21:48)
[2016-10-21] MEDS: DEXTROSE 5%-0.45% SALINE 1,000 ML IV SCH (20:00)
[2016-10-21] MEDS ORDERED: HEPARIN INFUSION - 500 ML IVPB ONE (20:03)
[2016-10-21] MEDS: CHLORHEXIDINE GLUCONATE 4% CLEANSER FOR DECOLONIZATION TP SCH (21:47)
[2016-10-22 02:32] LABS: MCH 29.6 pg (25.7-33.7); MCHC 32.2 g/dl (32.0-36.0); MEAN PLT VOLUME 9.3 fl (7.5-11.1); PLATELET COUNT 128 K/MM3 (134-434); RDW 14.7 % (11.6-15.6); WHITE BLOOD COUNT 7.1 K/mm3 (4.0-10.0)
[2016-10-22 03:32] LABS: TROPONIN I 3.86 ng/ml (0.00-0.05)
--- NOTE | 2016-10-22 07:10 | PN ---
Progress Note (short form) - Note Progress Note: Pt without complaints of CP/COB. Vital Signs Period Temp Pulse Resp BP Sys/Nassar Pulse Ox Last 24 Hr 97.4 F-100 F 18-66 16-18 92-116/35-80 96-100 UOP-1200ml clear/yellow urine PE GEN: appears comfortable CV: RRR Lungs: CTA b/l anteriorly ABD: soft, non-distended, non-tender LE: Left leg with mild swelling, warm with DP pulse with doppler. Azar wrap on LLE, replaced with nicholas stocking and azar above the knee. No ecchymosis noted posterior to the knee. Right leg: no swelling, foot warm. Applied Nicholas stocking. CBC, BMP 10/22/16 01:42 10/21/16 05:27 Laboratory Tests 10/21/16 10/21/16 10/22/16 05:27 11:45 01:42 PTT (Actin FS) Troponin I 9.96 H* 7.48 H* 3.86 H* 10/22/16 01:42 PTT (Actin FS) 111.1 H D Troponin I Problem List - Problems (1) Deep vein thrombosis (DVT) of left iliofemoral vein Assessment/Plan: 86 yo female with h/0 DVT left femoral, iliac and IVC s/p percutaneous thrombolysis with completion venoplasty and stenting of left femoral and iliac veins and IVC. Now with elevated troponins(decreasing)and being monitored by cardiology, Her CP which has improved was felt to be demand ischemia. She remains on IV heparin with PTT to be recheked this am, as well as BMP/ troponins Her H&H dropped and she is receiving one unit of PRBC S/w Dr. Wheeler, will begin coumadin this evening the patient may be oob to chair, discontinue oneal Code(s): I82.422 - ACUTE EMBOLISM AND THROMBOSIS OF LEFT ILIAC VEIN
--- NOTE | 2016-10-22 09:38 | PN ---
Progress Note (short form) - Note Progress Note: ANESTHESIA POST-OP CHECK 86F s/p removal of EKOS catheter and angiogram/angioplasty under MAC/sedation anesthesia, POD #1. No acute complaints. Denies pain, N/V. Tolerating PO diet. Not yet OOB, oneal in place. Vital Signs Temperature 98.3 F 10/22/16 06:00 Pulse Rate 63 10/22/16 08:00 Respiratory Rate 15 10/22/16 08:00 Blood Pressure 114/46 10/22/16 08:00 O2 Sat by Pulse Oximetry (%) 100 10/22/16 08:00 Active Medications Amlodipine Besylate (Norvasc -) 2.5 mg PO DAILY [facility] Last Admin: 10/21/16 09:33 Dose: 2.5 mg Aspirin (Asa -) 81 mg PO DAILY [facility] Last Admin: 10/21/16 10:38 Dose: 81 mg Chlorhexidine Gluconate (Hibiclens For Decolonization -) 1 applic TP HS [facility] Last Admin: 10/21/16 21:47 Dose: 1 applic Heparin Sodium (Porcine) (Heparin -) 1,000 unit IVPUSH PRN PRN PRN Reason: Heparin Heparin Sodium (Porcine) (Heparin -) 5,000 unit IVPUSH PRN PRN PRN Reason: Heparin Dextrose/Sodium Chloride (D5-1/2ns -) 1,000 mls @ 50 mls/hr IV ASDIR NENO Last Admin: 10/21/16 20:00 Dose: 50 mls/hr Heparin Sodium/Dextrose (Heparin Infusion -) 500 mls @ 10 mls/hr IVPB TITR NENO ; 500 UNITS/HR PRN Reason: Protocol Last Titration: 10/22/16 03:00 Dose: 0 units/hr Metoprolol Succinate (Toprol Xl -) 25 mg PO DAILY [facility] Last Admin: 10/21/16 08:59 Dose: 25 mg Mupirocin (Bactroban Ointment (For Decolonization) -) 1 applic NS BID [facility] Stop: 10/25/16 21:59 Last Admin: 10/21/16 21:47 Dose: 1 applic Oxycodone HCl (Roxicodone -) 5 mg PO Q6H PRN PRN Reason: PAIN Last Admin: 10/21/16 00:16 Dose: 5 mg Pantoprazole Sodium (Protonix -) 40 mg PO DAILY [facility] Last Admin: 10/21/16 09:33 Dose: 40 mg Gen: awake, alert No apparent anesthesia complications. Pain well controlled, continue management as per primary team.
[2016-10-22 10:09] LABS: BASOPHIL 0.7 % (0-2.0); MCH 30.5 pg (25.7-33.7); MCHC 33.1 g/dl (32.0-36.0); MEAN CELL VOLUME 92.2 fl (80-96); NEUTROPHILS 72.7 % (42.8-82.8); PLATELET COUNT 134 K/MM3 (134-434); RDW 14.5 % (11.6-15.6)
[2016-10-22] MEDS: ASPIRIN 81 MG CHEWABLE TABLETS PO SCH (10:43)
[2016-10-22] MEDS: amLODIPine BESYLATE 2.5 MG TABLET (FP) PO SCH (10:44)
[2016-10-22] MEDS: PANTOPRAZOLE 40 MG TABLET (FP) PO SCH (10:44)
[2016-10-22] MEDS: MUPIROCIN 2% TOPICAL OINTMENT FOR DECOLONIZATION NS SCH ×2 (10:44→22:00)
[2016-10-22] MEDS: METOPROLOL SUCCINATE 25 MG TAB.SR.24H (FP) PO SCH (10:44)
[2016-10-22 10:53] LABS: INR 1.27 (0.82-1.09)
[2016-10-22 10:56] LABS: ACTIVATED PTT 62.8 SECONDS (26.9-34.4)
--- NOTE | 2016-10-22 11:03 | PN ---
Progress Note, Physician History of Present Illness: No further chest tightness or dyspnea, underwent completion venoplasty and stenting of left femoral and iliac veins and IVC without sequelae. - Current Medication List Current Medications: Active Medications Amlodipine Besylate (Norvasc -) 2.5 mg PO DAILY [facility] Last Admin: 10/22/16 10:44 Dose: 2.5 mg Aspirin (Asa -) 81 mg PO DAILY [facility] Last Admin: 10/22/16 10:43 Dose: 81 mg Chlorhexidine Gluconate (Hibiclens For Decolonization -) 1 applic TP HS [facility] Last Admin: 10/21/16 21:47 Dose: 1 applic Heparin Sodium (Porcine) (Heparin -) 1,000 unit IVPUSH PRN PRN PRN Reason: Heparin Heparin Sodium (Porcine) (Heparin -) 5,000 unit IVPUSH PRN PRN PRN Reason: Heparin Dextrose/Sodium Chloride (D5-1/2ns -) 1,000 mls @ 50 mls/hr IV ASDIR [facility] Last Admin: 10/21/16 20:00 Dose: 50 mls/hr Heparin Sodium/Dextrose (Heparin Infusion -) 500 mls @ 10 mls/hr IVPB TITR NENO ; 500 UNITS/HR PRN Reason: Protocol Last Titration: 10/22/16 03:00 Dose: 0 units/hr Metoprolol Succinate (Toprol Xl -) 25 mg PO DAILY [facility] Last Admin: 10/22/16 10:44 Dose: 25 mg Mupirocin (Bactroban Ointment (For Decolonization) -) 1 applic NS BID [facility] Stop: 10/25/16 21:59 Last Admin: 10/22/16 10:44 Dose: 1 applic Oxycodone HCl (Roxicodone -) 5 mg PO Q6H PRN PRN Reason: PAIN Last Admin: 10/21/16 00:16 Dose: 5 mg Pantoprazole Sodium (Protonix -) 40 mg PO DAILY [facility] Last Admin: 10/22/16 10:44 Dose: 40 mg Warfarin Sodium (Coumadin -) 10 mg PO ONCE@1800 ONE Stop: 10/22/16 18:01 - Objective Vital Signs: Vital Signs Temperature 98.4 F 10/22/16 10:00 Pulse Rate 72 10/22/16 10:00 Respiratory Rate 222 H 10/22/16 10:00 Blood Pressure 110/44 10/22/16 10:00 O2 Sat by Pulse Oximetry (%) 100 10/22/16 08:00 Constitutional: Yes: No Distress, Calm Neck: Yes: Supple Cardiovascular: Yes: Regular Rate and Rhythm Respiratory: Yes: Regular, Diminished, On Nasal O2 Gastrointestinal: Yes: Normal Bowel Sounds, Soft Edema: Yes Edema: LLE: 1+ Labs: CBC, BMP 10/22/16 09:40 10/22/16 09:40 INR, PTT INR 1.15 (0.82-1.09) H 10/21/16 05:27 Fibrinogen 216.0 mg/dL (238-498) L 10/21/16 11:45 Problem List - Problems (1) Deep vein thrombosis (DVT) of left iliofemoral vein Code(s): I82.422 - ACUTE EMBOLISM AND THROMBOSIS OF LEFT ILIAC VEIN (2) Pulmonary embolus Code(s): I26.99 - OTHER PULMONARY EMBOLISM WITHOUT ACUTE COR PULMONALE Qualifiers: Pulmonary embolism type: other Chronicity: acute (3) Demand ischemia Code(s): I24.8 - OTHER FORMS OF ACUTE ISCHEMIC HEART DISEASE (4) Hypertension Code(s): I10 - ESSENTIAL (PRIMARY) HYPERTENSION Qualifiers: Hypertension type: essential hypertension Qualified Code(s): I10 - Essential (primary) hypertension (5) [id number] kidney injury Code(s): N17.9 - ACUTE KIDNEY FAILURE, UNSPECIFIED N18.9 - CHRONIC KIDNEY DISEASE, UNSPECIFIED (6) Anemia Code(s): D64.9 - ANEMIA, UNSPECIFIED Assessment/Plan 09/23/2016 Echo: Normal LV size and fxn, mod-severe MAX, mod MR, severe TR, RVSP 50-60 mmHg, mild AR 10/21/2016 Echo: Normal LV size with mild cLVH and preserved systolic fxn, mild- mod MAX, mild LAE, mod-severe TR RVSP 50-60 mmHg, mild AR 1. Chest pain syndrome with demand ischemic injury suspect pulmonary embolism 2. Extensive left DVT post thrombolysis and thrombectomy left iliofemoral vein and IVC. Completion venoplasty and stenting of left femoral and iliac veins and IVC. 3. HTN 4. Acute on CKD referable to hemodynamic alterations 5. Anemia post transfusion 6. Pulm HTN P:1. Cardiac enzymes have peaked, check BNP, monitor renal recovery, Hgb post transfusion 2. Echo findings unchanged from previous study 3. ASA 81 qd, Norvasc 2.5 qd, Toprol XL 25 qd, heparin->coumadin per INR 4. Repeat chest CTA once clinically stable
[2016-10-22 11:06] LABS: ALBUMIN 2.4 g/dl (3.4-5.0); BILIRUBIN,TOTAL 0.9 mg/dL (0.2-1.0); CALCIUM 7.9 mg/dL (8.5-10.1); CREATININE 1.3 mg/dL (0.55-1.02); MAGNESIUM 1.7 mg/dL (1.8-2.4); PHOSPHOROUS 2.8 mg/dL (2.5-4.9); TOT PROT 4.8 g/dl (6.4-8.2)
[2016-10-22 11:23] LABS: TROPONIN I 3.33 ng/ml (0.00-0.05)
--- NOTE | 2016-10-22 13:38 | PN ---
Progress Note, Physician History of Present Illness: went to the OR again yesterday for removal of sheath and stenting of the LLE - Current Medication List Current Medications: Active Medications Amlodipine Besylate (Norvasc -) 2.5 mg PO DAILY [facility] Last Admin: 10/22/16 10:44 Dose: 2.5 mg Aspirin (Asa -) 81 mg PO DAILY [facility] Last Admin: 10/22/16 10:43 Dose: 81 mg Chlorhexidine Gluconate (Hibiclens For Decolonization -) 1 applic TP HS [facility] Last Admin: 10/21/16 21:47 Dose: 1 applic Heparin Sodium (Porcine) (Heparin -) 1,000 unit IVPUSH PRN PRN PRN Reason: Heparin Heparin Sodium (Porcine) (Heparin -) 5,000 unit IVPUSH PRN PRN PRN Reason: Heparin Dextrose/Sodium Chloride (D5-1/2ns -) 1,000 mls @ 50 mls/hr IV ASDIR [facility] Last Admin: 10/21/16 20:00 Dose: 50 mls/hr Heparin Sodium/Dextrose (Heparin Infusion -) 500 mls @ 10 mls/hr IVPB TITR NENO ; 500 UNITS/HR PRN Reason: Protocol Last Titration: 10/22/16 03:00 Dose: 0 units/hr Metoprolol Succinate (Toprol Xl -) 25 mg PO DAILY [facility] Last Admin: 10/22/16 10:44 Dose: 25 mg Mupirocin (Bactroban Ointment (For Decolonization) -) 1 applic NS BID [facility] Stop: 10/25/16 21:59 Last Admin: 10/22/16 10:44 Dose: 1 applic Oxycodone HCl (Roxicodone -) 5 mg PO Q6H PRN PRN Reason: PAIN Last Admin: 10/21/16 00:16 Dose: 5 mg Pantoprazole Sodium (Protonix -) 40 mg PO DAILY [facility] Last Admin: 10/22/16 10:44 Dose: 40 mg Warfarin Sodium (Coumadin -) 10 mg PO ONCE@1800 ONE Stop: 10/22/16 18:01 - Objective Vital Signs: Vital Signs Temperature 98.4 F 10/22/16 10:00 Pulse Rate 70 10/22/16 12:00 Respiratory Rate 18 10/22/16 12:00 Blood Pressure 92/37 10/22/16 12:00 O2 Sat by Pulse Oximetry (%) 100 10/22/16 12:58 Constitutional: Yes: Well Nourished, No Distress Eyes: Yes: WNL, EOM Intact, PERRL HENT: Yes: WNL Neck: Yes: WNL, Supple Cardiovascular: Yes: WNL, Regular Rate and Rhythm Respiratory: Yes: WNL, Regular, CTA Bilaterally Gastrointestinal: Yes: WNL, Normal Bowel Sounds Renal/: Yes: Oneal Present, Hematuria cleared Musculoskeletal: Yes: WNL Edema: Yes Edema: LLE: 2+ (non pitting ) Peripheral Pulses WNL: Yes (2+ RLE DP LLE DP not palpated but leg warm with good capillary refill ) Wound/Incision: Yes: Clean/Dry, Other Neurological: Yes: WNL, Alert ...Motor Strength: WNL Labs: CBC, BMP 10/22/16 09:40 10/22/16 09:40 INR, PTT INR 1.27 (0.82-1.09) H 10/22/16 09:40 Fibrinogen 216.0 mg/dL (238-498) L 10/21/16 11:45 Assessment/Plan 86F Post op after LLE thrombectomy and catheter directed thrombolysis. Received patient in hypertensive urgency from OR. ACS questionable NSTEMI ECHO Metoprolol patient on TPA and hep gtt will continue and will medically manage ACS for now will trend enzymes to document peak persantine myoview once vascular issues resolved cardiology consult appreciated possible patient could have a PE will get CTA continue aspirin 81mg LLE DVT s/p thrombectomy with TPA thrombolysis on Hep gtt Check PTT q6h trend CBC Will contact Dr. Wheeler for any issues [phone] Start coumadin today no more eliquis Anemia: s/p 1 unit PRBC trend CBC appropriate response JJ: likely prerenal will monitor for now Hypertensive urgency/HTN continue norvasc continue metoprolol Restart norvasc Hematuria: rine to be expected per vascular sx resolving GERD: Restart Protonix PO Raynauds: stable FEN: Stop IVF no electrolyte issues BNP in AM NPO except meds PPx: on Hep gtt and tpa gtt Protonix PO OOB D/C oneal CCT: 35 min
[2016-10-22] MEDS ORDERED: HEPARIN NA (PORCINE) 5,000 UNITS/ML 1ML VIAL IVPUSH PRN ×4 (13:50)
--- NOTE | 2016-10-22 14:25 | PN ---
Teaching Attending Note Name of Resident: Jani Corral ATTENDING PHYSICIAN STATEMENT I saw and evaluated the patient. I reviewed the resident's note and discussed the case with the resident. I agree with the resident's findings and plan as documented. SUBJECTIVE: Patient seen and examined in the ICU. Denies CP or SOB. No abdominal pain. Troponin levels decreasing. OBJECTIVE: Intake & Output 10/19/16 10/20/16 10/21/16 10/22/16 23:59 23:59 23:59 23:59 Intake Total 1350 2770 681 Output Total 550 1300 1100 Balance 800 1470 -419 Weight 163 lb 11.2 oz 162 lb 162 lb 4 oz Last Vital Signs Temp Pulse Resp BP Pulse Ox 98.4 F 70 18 92/37 100 10/22/16 10:00 10/22/16 12:00 10/22/16 12:00 10/22/16 12:00 10/22/16 12:58 Active Medications Amlodipine Besylate (Norvasc -) 2.5 mg PO DAILY [facility] Aspirin (Asa -) 81 mg PO DAILY [facility] Chlorhexidine Gluconate (Hibiclens For Decolonization -) 1 applic TP HS [facility] Heparin Sodium (Porcine) (Heparin -) 1,000 unit IVPUSH PRN PRN PRN Reason: Heparin Heparin Sodium (Porcine) (Heparin -) 5,000 unit IVPUSH PRN PRN PRN Reason: Heparin Heparin Sodium/Dextrose (Heparin Infusion -) 500 mls @ 10 mls/hr IVPB TITR NENO ; 500 UNITS/HR PRN Reason: Protocol Metoprolol Succinate (Toprol Xl -) 25 mg PO DAILY [facility] Mupirocin (Bactroban Ointment (For Decolonization) -) 1 applic NS BID [facility] Stop: 10/25/16 21:59 Oxycodone HCl (Roxicodone -) 5 mg PO Q6H PRN PRN Reason: PAIN Pantoprazole Sodium (Protonix -) 40 mg PO DAILY [facility] Warfarin Sodium (Coumadin -) 10 mg PO ONCE@1800 ONE Stop: 10/22/16 18:01 Gen: NAD at rest Heart: RRR Lung: decreased breath sounds at the bases Abd: soft, nontender Ext: no edema Laboratory Results - last 24 hr 10/21/16 10/21/16 10/22/16 11:45 11:45 01:42 WBC RBC Hgb Hct MCV MCHC RDW Plt Count MPV Neutrophils % Lymphocytes % Monocytes % Eosinophils % Basophils % INR PTT (Actin FS) 36.4 H Fibrinogen 216.0 L Sodium Potassium Chloride Carbon Dioxide Anion Gap BUN Creatinine Creat Clearance w eGFR Random Glucose Calcium Phosphorus Magnesium Total Bilirubin AST ALT Alkaline Phosphatase Creatine Kinase 59 Troponin I 3.86 H* B-Natriuretic Peptide Total Protein Albumin Blood Type Antibody Screen Crossmatch 10/22/16 10/22/16 10/22/16 01:42 01:42 04:00 WBC 7.1 RBC 2.49 L Hgb 7.4 L D Hct 22.9 L D MCV 92.0 MCHC 32.2 RDW 14.7 Plt Count 128 L MPV 9.3 Neutrophils % Lymphocytes % Monocytes % Eosinophils % Basophils % INR PTT (Actin FS) 111.1 H D Fibrinogen Sodium Potassium Chloride Carbon Dioxide Anion Gap BUN Creatinine Creat Clearance w eGFR Random Glucose Calcium Phosphorus Magnesium Total Bilirubin AST ALT Alkaline Phosphatase Creatine Kinase Troponin I B-Natriuretic Peptide Total Protein Albumin Blood Type A POSITIVE Antibody Screen Negative Crossmatch See Detail 10/22/16 10/22/16 10/22/16 04:00 09:40 09:40 WBC 9.0 RBC 3.11 L D Hgb 9.5 L D Hct 28.7 L D MCV 92.2 MCHC 33.1 RDW 14.5 Plt Count 134 MPV 9.0 Neutrophils % 72.7 Lymphocytes % 10.6 Monocytes % 9.0 Eosinophils % 7.0 H Basophils % 0.7 INR 1.27 H PTT (Actin FS) 62.8 H D Fibrinogen Sodium Potassium Chloride Carbon Dioxide Anion Gap BUN Creatinine Creat Clearance w eGFR Random Glucose Calcium Phosphorus Magnesium Total Bilirubin AST ALT Alkaline Phosphatase Creatine Kinase Troponin I B-Natriuretic Peptide Total Protein Albumin Blood Type A POSITIVE Antibody Screen Crossmatch 10/22/16 09:40 WBC RBC Hgb Hct MCV MCHC RDW Plt Count MPV Neutrophils % Lymphocytes % Monocytes % Eosinophils % Basophils % INR PTT (Actin FS) Fibrinogen Sodium 145 Potassium 3.8 Chloride 112 H Carbon Dioxide 25 Anion Gap 8 BUN 19 H Creatinine 1.3 H Creat Clearance w eGFR 39.02 Random Glucose 116 H Calcium 7.9 L Phosphorus 2.8 D Magnesium 1.7 L Total Bilirubin 0.9 D AST 28 D ALT 18 D Alkaline Phosphatase 122 H D Creatine Kinase 61 Troponin I 3.33 H* B-Natriuretic Peptide 3093.42 H Total Protein 4.8 L Albumin 2.4 L Blood Type Antibody Screen Crossmatch ASSESSMENT AND PLAN: Extensive LLE DVT s/p thrombectomy/thrombolysis Likely PE +Troponins likely from demand ischemia vs PE Pulmonary HTN Acute on Chronic Renal Failure HTN - AC - ASA - beta cynthia, statin - PO as tolerated - O2 as needed - Follow INR - Telemetry monitoring Dr Koroma CCTime 35"
[2016-10-22] MEDS ORDERED: PT OWN MED DRAWER 7, Y5N ONE (17:11)
[2016-10-22] MEDS: HEPARIN INFUSION - 500 ML IVPB SCH (17:16)
[2016-10-22] MEDS ORDERED: WARFARIN NA 10 MG TABLET (FP) PO ONE ×2 (18:00)
[2016-10-22] MEDS: CHLORHEXIDINE GLUCONATE 4% CLEANSER FOR DECOLONIZATION TP SCH (22:00)
[2016-10-23 07:26] LABS: INR 1.26 (0.82-1.09); PROTHROMBIN TIME (PATIENT) 13.9 SEC (9.98-11.88)
[2016-10-23] MEDS: PARoxetine HCL 20 MG TABLET (FP) PO SCH (09:30)
[2016-10-23] MEDS: PANTOPRAZOLE 40 MG TABLET (FP) PO SCH (09:31)
[2016-10-23] MEDS: METOPROLOL SUCCINATE 25 MG TAB.SR.24H (FP) PO SCH (09:31)
[2016-10-23] MEDS: amLODIPine BESYLATE 2.5 MG TABLET (FP) PO SCH (09:31)
[2016-10-23] MEDS: ASPIRIN 81 MG CHEWABLE TABLETS PO SCH (09:31)
[2016-10-23] MEDS: HEPARIN INFUSION - 500 ML IVPB SCH ×2 (09:31→14:51)
[2016-10-23] MEDS: MUPIROCIN 2% TOPICAL OINTMENT FOR DECOLONIZATION NS SCH ×2 (09:32→22:06)
--- NOTE | 2016-10-23 10:57 | PN ---
Progress Note (short form) - Note Progress Note: PULMONARY OFFERS NO COMPLAINTS OF SOB/PLEURITIC PAIN APPEARS COMFORTABLE VSS/AFEBRILE ANICTERIC CHEST CLEAR S1S2 BS+ SOFT LEFT LOWER EXT EDEMA S/P THROMBECTOMY LABS/MEDS/NOTES/IMAGING REVIEWED Extensive LLE DVT s/p thrombectomy/thrombolysis Likely PE +Troponins likely from demand ischemia vs PE Pulmonary HTN Acute on Chronic Renal Failure HTN - AC - ASA - beta cynthia, statin - PO as tolerated - O2 as needed - Follow INR - Telemetry monitoring Pari TERRELL MD
--- NOTE | 2016-10-23 12:52 | PN ---
Progress Note, Physician History of Present Illness: Denies chest pain or dyspnea, LLE edema improved post intervention. - Current Medication List Current Medications: Active Medications Amlodipine Besylate (Norvasc -) 2.5 mg PO DAILY [facility] Last Admin: 10/23/16 09:31 Dose: 2.5 mg Aspirin (Asa -) 81 mg PO DAILY [facility] Last Admin: 10/23/16 09:31 Dose: 81 mg Chlorhexidine Gluconate (Hibiclens For Decolonization -) 1 applic TP HS [facility] Last Admin: 10/22/16 22:00 Dose: Not Given Heparin Sodium (Porcine) (Heparin -) 1,000 unit IVPUSH PRN PRN PRN Reason: Heparin Heparin Sodium (Porcine) (Heparin -) 5,000 unit IVPUSH PRN PRN PRN Reason: Heparin Heparin Sodium/Dextrose (Heparin Infusion -) 500 mls @ 10 mls/hr IVPB TITR [facility] ; 500 UNITS/HR PRN Reason: Protocol Last Admin: 10/23/16 09:31 Dose: 17 mls/hr Metoprolol Succinate (Toprol Xl -) 25 mg PO DAILY [facility] Last Admin: 10/23/16 09:31 Dose: 25 mg Mupirocin (Bactroban Ointment (For Decolonization) -) 1 applic NS BID [facility] Stop: 10/25/16 21:59 Last Admin: 10/23/16 09:32 Dose: Not Given Oxycodone HCl (Roxicodone -) 5 mg PO Q6H PRN PRN Reason: PAIN Pantoprazole Sodium (Protonix -) 40 mg PO DAILY [facility] Last Admin: 10/23/16 09:31 Dose: 40 mg Paroxetine HCl (Paxil -) 20 mg PO DAILY [facility] Last Admin: 10/23/16 09:30 Dose: 20 mg - Objective Vital Signs: Vital Signs Temperature 98.2 F 10/23/16 08:27 Pulse Rate 67 10/23/16 08:27 Respiratory Rate 18 10/23/16 08:27 Blood Pressure 127/69 10/23/16 08:27 O2 Sat by Pulse Oximetry (%) 100 10/23/16 08:27 Constitutional: Yes: No Distress, Calm Neck: Yes: Supple Cardiovascular: Yes: Regular Rate and Rhythm Respiratory: Yes: Regular, Diminished, On Nasal O2 Gastrointestinal: Yes: Normal Bowel Sounds, Soft Edema: Yes Edema: LLE: 1+ Labs: CBC, BMP 10/22/16 09:40 10/22/16 09:40 INR, PTT INR 1.26 (0.82-1.09) H 10/23/16 05:35 Fibrinogen 216.0 mg/dL (238-498) L 10/21/16 11:45 - ....Imaging EKG: Report Reviewed (Tele shows bursts of PAF) Problem List - Problems (1) Deep vein thrombosis (DVT) of left iliofemoral vein Code(s): I82.422 - ACUTE EMBOLISM AND THROMBOSIS OF LEFT ILIAC VEIN (2) Pulmonary embolus Code(s): I26.99 - OTHER PULMONARY EMBOLISM WITHOUT ACUTE COR PULMONALE Qualifiers: Pulmonary embolism type: other Chronicity: acute (3) Demand ischemia Code(s): I24.8 - OTHER FORMS OF ACUTE ISCHEMIC HEART DISEASE (4) Hypertension Code(s): I10 - ESSENTIAL (PRIMARY) HYPERTENSION Qualifiers: Hypertension type: essential hypertension Qualified Code(s): I10 - Essential (primary) hypertension (5) Fegvd-[id number]-cajyamn kidney injury Code(s): N17.9 - ACUTE KIDNEY FAILURE, UNSPECIFIED N18.9 - CHRONIC KIDNEY DISEASE, UNSPECIFIED (6) Anemia Code(s): D64.9 - ANEMIA, UNSPECIFIED (7) Paroxysmal atrial fibrillation Code(s): I48.0 - PAROXYSMAL ATRIAL FIBRILLATION Assessment/Plan 09/23/2016 Echo: Normal LV size and fxn, mod-severe MAX, mod MR, severe TR, RVSP 50-60 mmHg, mild AR 10/21/2016 Echo: Normal LV size with mild cLVH and preserved systolic fxn, mild- mod MAX, mild LAE, mod-severe TR RVSP 50-60 mmHg, mild AR 1. Chest pain syndrome with demand ischemic injury suspect pulmonary embolism 2. Extensive left DVT post thrombolysis and thrombectomy left iliofemoral vein and IVC. Completion venoplasty and stenting of left femoral and iliac veins and IVC. 3. HTN 4. Acute on CKD referable to hemodynamic alterations 5. Anemia post transfusion 6. Pulm HTN 7. PAF->SR P: 1. ASA 81 qd, Norvasc 2.5 qd, Toprol XL 25 qd, heparin->coumadin per INR 2. Repeat chest CTA once clinically stable
[2016-10-23 13:23] LABS: BASOPHIL 1.1 % (0-2.0); EOSINOPHIL 9.4 % (0-4.5); MCH 30.5 pg (25.7-33.7); MCHC 33.1 g/dl (32.0-36.0); MEAN PLT VOLUME 9.4 fl (7.5-11.1); PLATELET COUNT 148 K/MM3 (134-434); RDW 14.3 % (11.6-15.6)
[2016-10-23 13:54] LABS: CALCIUM 7.9 mg/dL (8.5-10.1); CREATININE 1.2 mg/dL (0.55-1.02)
--- NOTE | 2016-10-23 15:07 | PN ---
Progress Note (short form) - Note Progress Note: Pt without any CP/SOB. Vital Signs Period Temp Pulse Resp BP Sys/Nassar Pulse Ox Last 24 Hr 98.0 F-98.5 F 61-69 18-22 114-141/42-69 100-100 PE: GEN: NAD ABD: soft, non-distended. non-tender. Left leg: decreased swelling, Palpable DP pulse. Knee hi Lesly stocking in place. Right leg: No swelling, warm. Lesly stocking in place to knee. CBC, BMP 10/23/16 12:50 10/23/16 12:50 INR, PTT INR 1.26 (0.82-1.09) H 10/23/16 05:35 Fibrinogen 216.0 mg/dL (238-498) L 10/21/16 11:45 Problem List - Problems (1) Deep vein thrombosis (DVT) of left iliofemoral vein Assessment/Plan: s/p percutaneous thrombolysis/ left iliac/femoral stent venoplasty INR 1.3 today, cont IV heparin and transition to coumadin. 10mg given, 5 mg ordered for this pm oob to chair diet as tolerated Cont Lesly stocking b/l continue all oral medications Code(s): I82.422 - ACUTE EMBOLISM AND THROMBOSIS OF LEFT ILIAC VEIN
[2016-10-23] MEDS ORDERED: WARFARIN NA 5 MG TABLET (UD) PO SCH (18:00)
[2016-10-23] MEDS: CHLORHEXIDINE GLUCONATE 4% CLEANSER FOR DECOLONIZATION TP SCH (22:06)
[2016-10-24 08:03] LABS: MCHC 33.8 g/dl (32.0-36.0); MEAN CELL VOLUME 91.9 fl (80-96); MEAN PLT VOLUME 10.1 fl (7.5-11.1); PLATELET COUNT 134 K/MM3 (134-434); RDW 14.7 % (11.6-15.6); WHITE BLOOD COUNT 5.9 K/mm3 (4.0-10.0)
[2016-10-24 08:15] LABS: ACTIVATED PTT 67.5 SECONDS (26.9-34.4)
[2016-10-24] MEDS: METOPROLOL SUCCINATE 25 MG TAB.SR.24H (FP) PO SCH (10:01)
[2016-10-24] MEDS: amLODIPine BESYLATE 2.5 MG TABLET (FP) PO SCH (10:01)
[2016-10-24] MEDS: PANTOPRAZOLE 40 MG TABLET (FP) PO SCH (10:01)
[2016-10-24] MEDS: ASPIRIN 81 MG CHEWABLE TABLETS PO SCH (10:01)
[2016-10-24] MEDS: PARoxetine HCL 20 MG TABLET (FP) PO SCH (10:01)
[2016-10-24] MEDS: MUPIROCIN 2% TOPICAL OINTMENT FOR DECOLONIZATION NS SCH ×2 (10:01→22:02)
[2016-10-24] MEDS: oxyCODONE HCL 5 MG TABLET PO PRN ×2 (10:03→18:40)
[2016-10-24 10:46] LABS: MCH 30.6 pg (25.7-33.7); MEAN CELL VOLUME 92.9 fl (80-96); MEAN PLT VOLUME 9.2 fl (7.5-11.1); PLATELET COUNT 150 K/MM3 (134-434); RDW 14.5 % (11.6-15.6); WHITE BLOOD COUNT 7.4 K/mm3 (4.0-10.0)
[2016-10-24 11:11] LABS: INR 2.31 (0.82-1.09); PROTHROMBIN TIME (PATIENT) 25.9 SEC (9.98-11.88)
--- NOTE | 2016-10-24 11:50 | PN ---
Progress Note (short form) - Note Progress Note: VSS Left leg swelling improved. Beginning to ambulate. INR 2.3 today Stop Heparin Recheck INR tomorrow Problem List - Problems (1) Deep vein thrombosis (DVT) of left iliofemoral vein Code(s): I82.422 - ACUTE EMBOLISM AND THROMBOSIS OF LEFT ILIAC VEIN
--- NOTE | 2016-10-24 15:52 | PN ---
Progress Note, Physician Chief Complaint: Not in distress Tolerating therapy History of Present Illness: Patient was seen and examined. Awake and alert. Chart was reviewed Denies chest pain, SOB or palpitations - Current Medication List Current Medications: Active Medications Amlodipine Besylate (Norvasc -) 2.5 mg PO DAILY [facility] Last Admin: 10/24/16 10:01 Dose: 2.5 mg Aspirin (Asa -) 81 mg PO DAILY [facility] Last Admin: 10/24/16 10:01 Dose: 81 mg Chlorhexidine Gluconate (Hibiclens For Decolonization -) 1 applic TP HS [facility] Last Admin: 10/23/16 22:06 Dose: Not Given Heparin Sodium/Dextrose (Heparin Infusion -) 500 mls @ 10 mls/hr IVPB TITR [facility] ; 500 UNITS/HR PRN Reason: Protocol Last Admin: 10/23/16 14:51 Dose: Not Given Metoprolol Succinate (Toprol Xl -) 25 mg PO DAILY [facility] Last Admin: 10/24/16 10:01 Dose: 25 mg Mupirocin (Bactroban Ointment (For Decolonization) -) 1 applic NS BID [facility] Stop: 10/25/16 21:59 Last Admin: 10/24/16 10:01 Dose: Not Given Oxycodone HCl (Roxicodone -) 5 mg PO Q6H PRN PRN Reason: PAIN Last Admin: 10/24/16 10:03 Dose: 5 mg Pantoprazole Sodium (Protonix -) 40 mg PO DAILY [facility] Last Admin: 10/24/16 10:01 Dose: 40 mg Paroxetine HCl (Paxil -) 20 mg PO DAILY [facility] Last Admin: 10/24/16 10:01 Dose: 20 mg Warfarin Sodium (Coumadin -) 3 mg PO DAILY@1800 [facility] - Objective Vital Signs: Vital Signs Temperature 98.5 F 10/24/16 14:46 Pulse Rate 71 10/24/16 14:46 Respiratory Rate 20 10/24/16 14:46 Blood Pressure 112/60 10/24/16 14:46 O2 Sat by Pulse Oximetry (%) 94 L 10/24/16 10:46 Neck: Yes: Supple Cardiovascular: Yes: Regular Rate and Rhythm, S1, S2 Respiratory: Yes: CTA Bilaterally Gastrointestinal: Yes: Normal Bowel Sounds, Soft. No: Tenderness Edema: No Additional Findings/Remarks: Review of Systems Constitutional: Denies: Chills or Fever Cardiovascular: Denies chest pain, SOB or palpitations Respiratory: Denies: Cough or Sputum Production, no hemoptysis Gastrointestinal: Denies: Diarrhea, Constipation or Abdominal Pain Genitourinary: No symptoms reported Neuro: No seizures or syncope Labs: CBC, BMP 10/24/16 10:30 10/23/16 12:50 INR, PTT INR 2.31 (0.82-1.09) H D 10/24/16 06:00 Fibrinogen 216.0 mg/dL (238-498) L 10/21/16 11:45 Problem List - Problems (1) Deep vein thrombosis (DVT) of left iliofemoral vein Code(s): I82.422 - ACUTE EMBOLISM AND THROMBOSIS OF LEFT ILIAC VEIN (2) Demand ischemia Code(s): I24.8 - OTHER FORMS OF ACUTE ISCHEMIC HEART DISEASE (3) Paroxysmal atrial fibrillation Code(s): I48.0 - PAROXYSMAL ATRIAL FIBRILLATION (4) Hypertension Code(s): I10 - ESSENTIAL (PRIMARY) HYPERTENSION Qualifiers: Hypertension type: essential hypertension Qualified Code(s): I10 - Essential (primary) hypertension Assessment/Plan 1. Chest pain syndrome with demand ischemic injury - probable PTE 2. Extensive left DVT post thrombolysis and thrombectomy left iliofemoral vein and IVC. Completion venoplasty and stenting of left femoral and iliac veins and IVC. 3. HTN 4. Acute on CKD referable to hemodynamic alterations 5. Anemia post transfusion 6. Pulm HTN 7. PAF currently in sinus rhythm PLAN: 1. ASA 81 mg QD, Norvasc 2.5 mg QD and Toprol XL 25 mg QD 2. Troponins are trending down and currently she is not having chest pain. Consider obtaining chest CTA once clinically stable to rule out PE 3. Further cardiac work up to rule out CAD once clinically stable. Echocardiography report reviewed with pulmonary HTN 4. Continue IV Heparin and Coumadin per INR Further plans are to follow Angel Hutchinson MD
[2016-10-24] MEDS: WARFARIN NA 3 MG TABLET PO SCH (17:36)
[2016-10-24] MEDS: HEPARIN INFUSION - 500 ML IVPB SCH (17:36)
[2016-10-24] MEDS: CHLORHEXIDINE GLUCONATE 4% CLEANSER FOR DECOLONIZATION TP SCH (22:02)
[2016-10-25] MEDS: oxyCODONE HCL 5 MG TABLET PO PRN ×2 (06:44→18:38)
[2016-10-25 07:35] LABS: INR 3.01 (0.82-1.09); PROTHROMBIN TIME (PATIENT) 33.9 SEC (9.98-11.88)
[2016-10-25] MEDS: METOPROLOL SUCCINATE 25 MG TAB.SR.24H (FP) PO SCH (10:18)
[2016-10-25] MEDS: ASPIRIN 81 MG CHEWABLE TABLETS PO SCH (10:18)
[2016-10-25] MEDS: PARoxetine HCL 20 MG TABLET (FP) PO SCH (10:19)
[2016-10-25] MEDS: PANTOPRAZOLE 40 MG TABLET (FP) PO SCH (10:19)
[2016-10-25] MEDS: amLODIPine BESYLATE 2.5 MG TABLET (FP) PO SCH (10:19)
[2016-10-25] MEDS: MUPIROCIN 2% TOPICAL OINTMENT FOR DECOLONIZATION NS SCH (13:41)
[2016-10-25] MEDS ORDERED: ACETAMINOPHEN 325 MG TABLET (FP) PO PRN (14:59)
--- NOTE | 2016-10-25 17:18 | PN ---
Progress Note, Physician Chief Complaint: Not in distress Tolerating therapy History of Present Illness: Patient was seen and examined. Awake and alert. Chart was reviewed Denies chest pain, SOB or palpitations febrile - Current Medication List Current Medications: Active Medications Acetaminophen (Tylenol -) 650 mg PO Q6H PRN PRN Reason: FEVER OR PAIN Last Admin: 10/25/16 15:18 Dose: 650 mg Amlodipine Besylate (Norvasc -) 2.5 mg PO DAILY [facility] Last Admin: 10/25/16 10:19 Dose: 2.5 mg Aspirin (Asa -) 81 mg PO DAILY [facility] Last Admin: 10/25/16 10:18 Dose: 81 mg Chlorhexidine Gluconate (Hibiclens For Decolonization -) 1 applic TP HS [facility] Last Admin: 10/24/16 22:02 Dose: Not Given Heparin Sodium/Dextrose (Heparin Infusion -) 500 mls @ 10 mls/hr IVPB TITR [facility] ; 500 UNITS/HR PRN Reason: Protocol Last Admin: 10/24/16 17:36 Dose: Not Given Metoprolol Succinate (Toprol Xl -) 25 mg PO DAILY [facility] Last Admin: 10/25/16 10:18 Dose: 25 mg Mupirocin (Bactroban Ointment (For Decolonization) -) 1 applic NS BID [facility] Stop: 10/25/16 21:59 Last Admin: 10/25/16 13:41 Dose: Not Given Oxycodone HCl (Roxicodone -) 5 mg PO Q6H PRN PRN Reason: PAIN Last Admin: 10/25/16 06:44 Dose: 5 mg Pantoprazole Sodium (Protonix -) 40 mg PO DAILY [facility] Last Admin: 10/25/16 10:19 Dose: 40 mg Paroxetine HCl (Paxil -) 20 mg PO DAILY [facility] Last Admin: 10/25/16 10:19 Dose: 20 mg Warfarin Sodium (Coumadin -) 3 mg PO DAILY@1800 [facility] Last Admin: 10/24/16 17:36 Dose: 3 mg - Objective Vital Signs: Vital Signs Temperature 101.1 F H 10/25/16 15:00 Pulse Rate 82 10/25/16 15:00 Respiratory Rate 20 10/25/16 15:00 Blood Pressure 121/51 10/25/16 15:00 O2 Sat by Pulse Oximetry (%) 98 10/25/16 05:54 Neck: Yes: Supple Cardiovascular: Yes: Regular Rate and Rhythm, S1, S2 Respiratory: Yes: Diminished Gastrointestinal: Yes: Normal Bowel Sounds, Soft. No: Tenderness Edema: No Additional Findings/Remarks: Review of Systems Constitutional: Denies: Chills or Fever Cardiovascular: Denies chest pain, SOB or palpitations Respiratory: Denies: Cough or Sputum Production, no hemoptysis Gastrointestinal: Denies: Diarrhea, Constipation or Abdominal Pain Genitourinary: No symptoms reported Neuro: No seizures or syncope Labs: INR, PTT INR 3.01 (0.82-1.09) H D 10/25/16 06:00 Fibrinogen 216.0 mg/dL (238-498) L 10/21/16 11:45 Problem List - Problems (1) Deep vein thrombosis (DVT) of left iliofemoral vein Code(s): I82.422 - ACUTE EMBOLISM AND THROMBOSIS OF LEFT ILIAC VEIN (2) Demand ischemia Code(s): I24.8 - OTHER FORMS OF ACUTE ISCHEMIC HEART DISEASE (3) Paroxysmal atrial fibrillation Code(s): I48.0 - PAROXYSMAL ATRIAL FIBRILLATION (4) Hypertension Code(s): I10 - ESSENTIAL (PRIMARY) HYPERTENSION Qualifiers: Hypertension type: essential hypertension Qualified Code(s): I10 - Essential (primary) hypertension Assessment/Plan 1. Chest pain syndrome with demand ischemic injury - probable PTE 2. Extensive left DVT post thrombolysis and thrombectomy left iliofemoral vein and IVC. Completion venoplasty and stenting of left femoral and iliac veins and IVC. 3. HTN 4. Acute on CKD referable to hemodynamic alterations 5. Anemia post transfusion 6. Pulm HTN 7. PAF currently in sinus rhythm PLAN: 1. ASA 81 mg QD, Norvasc 2.5 mg QD and Toprol XL 25 mg QD 2. Consider obtaining chest CTA once clinically stable to rule out PE 3. Further cardiac work up to rule out CAD once clinically stable. 4. Continue IV Heparin and Coumadin per INR 5. If fever continues, she may need further work up Further plans are to follow Angel Hutchinson MD
[2016-10-25] MEDS: WARFARIN NA 3 MG TABLET PO SCH (18:38)
[2016-10-25] MEDS: CHLORHEXIDINE GLUCONATE 4% CLEANSER FOR DECOLONIZATION TP SCH (22:21)
[2016-10-26 06:56] LABS: BASOPHIL 1.3 % (0-2.0); EOSINOPHIL 6.9 % (0-4.5); MCH 30.8 pg (25.7-33.7); MCHC 33.3 g/dl (32.0-36.0); MEAN CELL VOLUME 92.6 fl (80-96); MEAN PLT VOLUME 10.4 fl (7.5-11.1); NEUTROPHILS 54.3 % (42.8-82.8); PLATELET COUNT 143 K/MM3 (134-434); RDW 14.4 % (11.6-15.6)
[2016-10-26 07:16] LABS: INR 3.12 (0.82-1.09); PROTHROMBIN TIME (PATIENT) 35.1 SEC (9.98-11.88)
[2016-10-26] MEDS: PANTOPRAZOLE 40 MG TABLET (FP) PO SCH (09:30)
[2016-10-26] MEDS: ASPIRIN 81 MG CHEWABLE TABLETS PO SCH (09:30)
[2016-10-26] MEDS: PARoxetine HCL 20 MG TABLET (FP) PO SCH (09:30)
[2016-10-26] MEDS: amLODIPine BESYLATE 2.5 MG TABLET (FP) PO SCH (09:30)
[2016-10-26] MEDS: METOPROLOL SUCCINATE 25 MG TAB.SR.24H (FP) PO SCH (09:31)
--- NOTE | 2016-10-26 10:32 | PN ---
Progress Note, Physician History of Present Illness: PULMONARY ALERT,NAD,-CP,-SOB - Current Medication List Current Medications: Active Medications Acetaminophen (Tylenol -) 650 mg PO Q6H PRN PRN Reason: FEVER OR PAIN Last Admin: 10/25/16 15:18 Dose: 650 mg Amlodipine Besylate (Norvasc -) 2.5 mg PO DAILY [facility] Last Admin: 10/26/16 09:30 Dose: 2.5 mg Aspirin (Asa -) 81 mg PO DAILY [facility] Last Admin: 10/26/16 09:30 Dose: 81 mg Chlorhexidine Gluconate (Hibiclens For Decolonization -) 1 applic TP HS [facility] Last Admin: 10/25/16 22:21 Dose: Not Given Heparin Sodium/Dextrose (Heparin Infusion -) 500 mls @ 10 mls/hr IVPB TITR [facility] ; 500 UNITS/HR PRN Reason: Protocol Last Admin: 10/24/16 17:36 Dose: Not Given Metoprolol Succinate (Toprol Xl -) 25 mg PO DAILY [facility] Last Admin: 10/26/16 09:31 Dose: 25 mg Oxycodone HCl (Roxicodone -) 5 mg PO Q6H PRN PRN Reason: PAIN Last Admin: 10/25/16 18:38 Dose: 5 mg Pantoprazole Sodium (Protonix -) 40 mg PO DAILY [facility] Last Admin: 10/26/16 09:30 Dose: 40 mg Paroxetine HCl (Paxil -) 20 mg PO DAILY [facility] Last Admin: 10/26/16 09:30 Dose: 20 mg Warfarin Sodium (Coumadin -) 3 mg PO DAILY@1800 [facility] Last Admin: 10/25/16 18:38 Dose: 3 mg - Objective Vital Signs: Vital Signs Temperature 98.2 F 10/26/16 06:00 Pulse Rate 63 10/26/16 09:15 Respiratory Rate 18 10/26/16 06:00 Blood Pressure 106/50 10/26/16 06:00 O2 Sat by Pulse Oximetry (%) 95 10/26/16 09:15 Constitutional: Yes: Well Nourished, Calm Eyes: Yes: WNL HENT: Yes: WNL Neck: Yes: WNL Cardiovascular: Yes: Regular Rate and Rhythm, S1, S2 Respiratory: Yes: CTA Bilaterally Gastrointestinal: Yes: WNL Extremities: Yes: WNL Edema: No Labs: CBC, BMP 10/26/16 05:00 10/23/16 12:50 INR, PTT INR 3.12 (0.82-1.09) H 10/26/16 05:00 Fibrinogen 216.0 mg/dL (238-498) L 10/21/16 11:45 Problem List - Problems (1) Nnuhs-zs-jymhebe kidney injury Code(s): N17.9 - ACUTE KIDNEY FAILURE, UNSPECIFIED N18.9 - CHRONIC KIDNEY DISEASE, UNSPECIFIED (2) Anemia Code(s): D64.9 - ANEMIA, UNSPECIFIED (3) Deep vein thrombosis (DVT) of left iliofemoral vein Code(s): I82.422 - ACUTE EMBOLISM AND THROMBOSIS OF LEFT ILIAC VEIN (4) Demand ischemia Code(s): I24.8 - OTHER FORMS OF ACUTE ISCHEMIC HEART DISEASE (5) Hypertension Code(s): I10 - ESSENTIAL (PRIMARY) HYPERTENSION Qualifiers: Hypertension type: essential hypertension Qualified Code(s): I10 - Essential (primary) hypertension (6) DVT (deep venous thrombosis) Code(s): I82.409 - ACUTE EMBOLISM AND THOMBOS UNSP DEEP VN UNSP LOWER EXTREMITY Qualifiers: DVT location: lower extremity Assessment/Plan Extensive LLE DVT s/p thrombectomy/thrombolysis Likely PE +Troponins likely from demand ischemia vs PE Pulmonary HTN Acute on Chronic Renal Failure HTN PLAN - AC - ASA - beta cynthia, statin - PO as tolerated - O2 as needed - Follow INR - w/u for hypercoagulable state DR LANDERS
--- NOTE | 2016-10-26 11:34 | PN ---
Progress Note (short form) - Note Progress Note: PT states that she was oob to chair x1 yesterday. Is ambulating to the bedside commode. NO CP/SOB. No cough, no burning with urination. Vital Signs Period Temp Pulse Resp BP Sys/Nassar Pulse Ox Last 24 Hr 98.1 F-101.1 F 62-82 18-20 106-129/48-60 95-98 PE ABD: soft, non-distended, non-tender LE: left leg elevated. Suture in place posterior to knee. Dependent swelling to posterior knee/thigh. b/l feet warm with +2 DP pulses. CBC, BMP 10/26/16 05:00 10/23/16 12:50 INR, PTT INR 3.12 (0.82-1.09) H 10/26/16 05:00 Fibrinogen 216.0 mg/dL (238-498) L 10/21/16 11:45 Problem List - Problems (1) Deep vein thrombosis (DVT) of left iliofemoral vein Assessment/Plan: Doing well after thrombolysis, on oral anticoagulation with INR 3.1, ordered 2.5 mg for tonight OOB to chair/ Physical therapy ordered placed. DORI stocking to b/l LE and elevated LLE when non-ambulatory D/w Dr. Miller Monitor fever curve, now afebrile wihtout elevated WBC. Incentive spirometer and oob/ambulate. Code(s): I82.422 - ACUTE EMBOLISM AND THROMBOSIS OF LEFT ILIAC VEIN
--- NOTE | 2016-10-26 12:02 | PN ---
Progress Note, Physician Chief Complaint: Not in distress Tolerating therapy History of Present Illness: Patient was seen and examined. Awake and alert. Chart was reviewed Denies chest pain, SOB or palpitations Afebrile and comfortable - Current Medication List Current Medications: Active Medications Acetaminophen (Tylenol -) 650 mg PO Q6H PRN PRN Reason: FEVER OR PAIN Last Admin: 10/25/16 15:18 Dose: 650 mg Amlodipine Besylate (Norvasc -) 2.5 mg PO DAILY [facility] Last Admin: 10/26/16 09:30 Dose: 2.5 mg Aspirin (Asa -) 81 mg PO DAILY [facility] Last Admin: 10/26/16 09:30 Dose: 81 mg Chlorhexidine Gluconate (Hibiclens For Decolonization -) 1 applic TP HS [facility] Last Admin: 10/25/16 22:21 Dose: Not Given Metoprolol Succinate (Toprol Xl -) 25 mg PO DAILY [facility] Last Admin: 10/26/16 09:31 Dose: 25 mg Oxycodone HCl (Roxicodone -) 5 mg PO Q6H PRN PRN Reason: PAIN Last Admin: 10/25/16 18:38 Dose: 5 mg Pantoprazole Sodium (Protonix -) 40 mg PO DAILY [facility] Last Admin: 10/26/16 09:30 Dose: 40 mg Paroxetine HCl (Paxil -) 20 mg PO DAILY [facility] Last Admin: 10/26/16 09:30 Dose: 20 mg Warfarin Sodium (Coumadin -) 2.5 mg PO DAILY@1800 [facility] Stop: 10/26/16 18:01 - Objective Vital Signs: Vital Signs Temperature 98.1 F 10/26/16 10:00 Pulse Rate 70 10/26/16 10:00 Respiratory Rate 18 10/26/16 10:00 Blood Pressure 125/56 10/26/16 10:00 O2 Sat by Pulse Oximetry (%) 95 10/26/16 10:00 Neck: Yes: Supple Cardiovascular: Yes: Regular Rate and Rhythm, S1, S2 Respiratory: Yes: CTA Bilaterally Gastrointestinal: Yes: Normal Bowel Sounds, Soft. No: Tenderness Edema: No Additional Findings/Remarks: Review of Systems Constitutional: Denies: Chills or Fever Cardiovascular: Denies chest pain, SOB or palpitations Respiratory: Denies: Cough or Sputum Production, no hemoptysis Gastrointestinal: Denies: Diarrhea, Constipation or Abdominal Pain Genitourinary: No symptoms reported Neuro: No seizures or syncope Labs: CBC 10/26/16 05:00 INR, PTT INR 3.12 (0.82-1.09) H 10/26/16 05:00 Fibrinogen 216.0 mg/dL (238-498) L 10/21/16 11:45 Problem List - Problems (1) Deep vein thrombosis (DVT) of left iliofemoral vein Code(s): I82.422 - ACUTE EMBOLISM AND THROMBOSIS OF LEFT ILIAC VEIN (2) Demand ischemia Code(s): I24.8 - OTHER FORMS OF ACUTE ISCHEMIC HEART DISEASE (3) Paroxysmal atrial fibrillation Code(s): I48.0 - PAROXYSMAL ATRIAL FIBRILLATION (4) Hypertension Code(s): I10 - ESSENTIAL (PRIMARY) HYPERTENSION Qualifiers: Hypertension type: essential hypertension Qualified Code(s): I10 - Essential (primary) hypertension Assessment/Plan 1. Chest pain syndrome with demand ischemic injury - probable PTE 2. Extensive left DVT post thrombolysis and thrombectomy left iliofemoral vein and IVC. Completion venoplasty and stenting of left femoral and iliac veins and IVC. 3. HTN 4. Acute on CKD referable to hemodynamic alterations 5. Anemia post transfusion 6. Pulm HTN 7. PAF currently in sinus rhythm PLAN: 1. ASA 81 mg QD, Norvasc 2.5 mg QD and Toprol XL 25 mg QD 2. Consider obtaining chest CTA once clinically stable to rule out PE 3. Further cardiac work up to rule out CAD once clinically stable. 4. Continue Coumadin per INR Further plans are to follow Angel Hutchinson MD
--- NOTE | 2016-10-26 13:27 | OP ---
DATE OF OPERATION: 10/20/2016 SURGEON: George Lai MD PROCEDURE: Ultrasound-guided cannulation of the left popliteal vein; percutaneous thrombolysis and thrombectomy of the left iliofemoral vein and vena cava; placement of EKOS catheter. PREOPERATIVE DIAGNOSIS: Left iliofemoral deep vein thrombosis. POSTOPERATIVE DIAGNOSIS: Left iliofemoral deep vein thrombosis, with thrombosis of the inferior vena cava. ANESTHESIA: Fractional. ANESTHESIOLOGIST: Derrick Horan DO OPERATIVE FINDINGS: Popliteal venography revealed a patent popliteal and femoral vein. There was complete occlusion of the common femoral vein, left iliac vein, and partial occlusion of the inferior vena cava. There also appeared to be thrombus within the right common iliac vein. OPERATIVE PROCEDURE: Following routine patient identification, side and site verification, the patient was placed in the prone position. Intravenous sedation was established. The left posterior leg was prepped with ChloraPrep. Using real-time duplex imaging. The left popliteal vein was identified and was found to be patent and compressible. Then 1% Xylocaine was infiltrated in the skin overlying the vein. The vein was cannulated with a micropuncture needle using duplex ultrasound guidance. Wire was passed proximally. A 5-Mongolian catheter was exchanged over the wire and an angled-tip Glidewire was advanced proximally into the femoral vein. The catheter was exchanged for an 8-Mongolian sheath. Venography was then performed with dilute contrast and digital technique. The wire and catheter were advanced proximally to the level of the common femoral vein. Additional images were obtained through the catheter. The wire was then advanced into the iliac vein with the catheter for support. There was difficulty passing proximal to the confluence of the iliac veins and the wire did enter the right iliac system. The catheter was advanced over the wire and contrast was injected as well to visualize the right iliac vein. Manipulation of the wire and catheter allowed it to be advanced into the inferior vena cava. Eventually it was able to be advanced to the level of the diaphragm. Contrast injected at this level revealed no evidence of thrombus. An AngioJet catheter was then used to deliver 10 mg of tPA into the occluded portion of the left iliac vein and vena cava. The medication was left in situ for 30 minutes and then suction thrombectomy performed with the EKOS catheter. Repeat imaging revealed partial recanalization of the occluded segment. An EKOS catheter with a 50-cm treatment level was then advanced over the wire, the tip positioned in the IVC, and the treatment zone extending down into the common femoral vein. The sheath was sutured to the skin with nylon and sterile dressings were applied. The EKOS catheter was then started at 1 mg per hour of tPA. The patient was then transported to the recovery room for overnight treatment with tPA. GEORGE LAI M.D. [id number]
--- NOTE | 2016-10-26 14:21 | OP ---
DATE OF OPERATION: 10/21/2016 SURGEON: Neto Lai MD PROCEDURE: Completion venoplasty and stenting of left femoral and iliac veins and vena cava. PREOPERATIVE DIAGNOSIS: Deep vein thrombosis of left iliofemoral veins and inferior vena cava. POSTOPERATIVE DIAGNOSIS: Deep vein thrombosis of left iliofemoral veins and inferior vena cava, with stenosis of the iliac and femoral veins. OPERATIVE FINDINGS: Following 24-hour tPA infusion, there was partial lysis of the left femoral and iliac vein thrombus. The IVC remained partially occluded distal to the renal veins. There was stenosis of the common iliac vein on the left side as well as an area of stenosis in the common femoral vein. PROCEDURE: The patient was brought back to the operating room and placed in the prone position. The EKOS catheter wire was removed and the catheter cut. The surrounding skin was prepped with ChloraPrep. A flexible wire was passed through the EKOS catheter into the vena cava and the catheter removed and discarded. Venography was then performed. through the sheath with the above-noted findings. Balloon venoplasty was then performed beginning in the vena cava and back into the iliac and femoral veins using balloons between 10 and 16 mm in diameter. Repeat imaging revealed better flow through the area. Decision to stent the iliac and femoral veins was made and a 16 mm x 60 mm Wallstent was placed in the left common iliac vein. A 10 mm x 60 mm LifeStar stent was placed in the left external iliac and common femoral vein. Completion imaging revealed free flow of contrast from the left femoral up through the IVC, with no complete occlusion seen. The sheath was removed from popliteal vein and a suture of 3-0 nylon placed in the skin to control bleeding. Pressure was applied and a pressure dressing before transporting the patient to the recovery room. NETO LAI M.D. [id number]
[2016-10-26] MEDS ORDERED: WARFARIN NA 2.5 MG TABLET (FP) PO SCH (18:00)
[2016-10-26] MEDS: CHLORHEXIDINE GLUCONATE 4% CLEANSER FOR DECOLONIZATION TP SCH (22:55)
--- NOTE | 2016-10-27 07:00 | PN ---
Progress Note (short form) - Note Progress Note: Chief Complaint: Events noted, notes reviewed, denies any chest pain or dyspnea History of Present Illness: Seen and examined on telemetry. Events noted, notes reviewed, denies any chest pain or dyspnea Echocardiography report noted LVH with normal LV systolic function and moderate to severe degree of pulmonary HTN - Current Medication List Current Medications Acetaminophen (Tylenol -) 650 mg PO Q6H PRN PRN Reason: FEVER OR PAIN Last Admin: 10/25/16 15:18 Dose: 650 mg Amlodipine Besylate (Norvasc -) 2.5 mg PO DAILY [facility] Last Admin: 10/26/16 09:30 Dose: 2.5 mg Aspirin (Asa -) 81 mg PO DAILY [facility] Last Admin: 10/26/16 09:30 Dose: 81 mg Chlorhexidine Gluconate (Hibiclens For Decolonization -) 1 applic TP HS [facility] Last Admin: 10/26/16 22:55 Dose: Not Given Metoprolol Succinate (Toprol Xl -) 25 mg PO DAILY [facility] Last Admin: 10/26/16 09:31 Dose: 25 mg Oxycodone HCl (Roxicodone -) 5 mg PO Q6H PRN PRN Reason: PAIN Last Admin: 10/25/16 18:38 Dose: 5 mg Pantoprazole Sodium (Protonix -) 40 mg PO DAILY [facility] Last Admin: 10/26/16 09:30 Dose: 40 mg Paroxetine HCl (Paxil -) 20 mg PO DAILY [facility] Last Admin: 10/26/16 09:30 Dose: 20 mg Review of Systems Constitutional: Denies: Chills or Fever Cardiovascular: As noted above Respiratory: Denies: Cough or Sputum Production Gastrointestinal: Denies: Nausea, Vomiting, Diarrhea, Constipation or Abdominal Pain Genitourinary: No symptoms reported Neuro: No seizures or syncope - Objective Vital Signs: Last Vital Signs Temp Pulse Resp BP Pulse Ox 98.2 F 64 20 131/65 98 10/27/16 02:00 10/27/16 06:00 10/27/16 06:00 10/27/16 06:00 10/26/16 21:20 Neck: Supple Negative JVD No Bruit Cardiovascular: S1 S2 Regular Rate and Rhythm Respiratory: Clear to A&P Bilaterally Gastrointestinal: Soft Benign Normal Bowel Sounds Ext: No Edema Labs: CBC, BMP 10/26/16 05:00 10/23/16 12:50 Assessment/Plan ASSESSMENT: 1. Chest pain syndrome CAD angina pectoris with demand ischemic injury 2. PAF [id number] score of 5 3. Probable PTE 4. Extensive left DVT post thrombolysis and thrombectomy left ilio-femoral vein and IVC (veno-plasty and stenting of left femoral and iliac veins and IVC) 5. HTN 6. Pulmonary HTN 7. Acute on CKD 8. Anemia post transfusion PLAN: 1. Continue Toprol XL 2. Continue Norvasc 3. Continue ASA and Coumadin as per INR with caution and close monitoring of Hg level 4. Consider obtaining chest CTA once renal function stabilized or as an alternative obtain V/Q scan 5. Further cardiovascular evaluation recommended prior to D/C Poly Velarde MD
[2016-10-27 07:37] LABS: INR 2.93 (0.82-1.09); PROTHROMBIN TIME (PATIENT) 32.9 SEC (9.98-11.88)
[2016-10-27] MEDS: METOPROLOL SUCCINATE 25 MG TAB.SR.24H (FP) PO SCH (10:12)
[2016-10-27] MEDS: PARoxetine HCL 20 MG TABLET (FP) PO SCH (10:12)
[2016-10-27] MEDS: amLODIPine BESYLATE 2.5 MG TABLET (FP) PO SCH (10:12)
[2016-10-27] MEDS: PANTOPRAZOLE 40 MG TABLET (FP) PO SCH (10:12)
[2016-10-27] MEDS: ASPIRIN 81 MG CHEWABLE TABLETS PO SCH (10:12)
--- NOTE | 2016-10-27 11:59 | PN ---
Progress Note, Physician History of Present Illness: PULMONARY ALERT,NO DISTRESS,-SOB,-CP - Current Medication List Current Medications: Active Medications Acetaminophen (Tylenol -) 650 mg PO Q6H PRN PRN Reason: FEVER OR PAIN Last Admin: 10/25/16 15:18 Dose: 650 mg Amlodipine Besylate (Norvasc -) 2.5 mg PO DAILY [facility] Last Admin: 10/27/16 10:12 Dose: 2.5 mg Aspirin (Asa -) 81 mg PO DAILY [facility] Last Admin: 10/27/16 10:12 Dose: 81 mg Chlorhexidine Gluconate (Hibiclens For Decolonization -) 1 applic TP HS [facility] Last Admin: 10/26/16 22:55 Dose: Not Given Metoprolol Succinate (Toprol Xl -) 25 mg PO DAILY [facility] Last Admin: 10/27/16 10:12 Dose: 25 mg Pantoprazole Sodium (Protonix -) 40 mg PO DAILY [facility] Last Admin: 10/27/16 10:12 Dose: 40 mg Paroxetine HCl (Paxil -) 20 mg PO DAILY [facility] Last Admin: 10/27/16 10:12 Dose: 20 mg - Objective Vital Signs: Vital Signs Temperature 97.8 F 10/27/16 10:00 Pulse Rate 65 10/27/16 10:00 Respiratory Rate 18 10/27/16 10:00 Blood Pressure 114/49 10/27/16 10:00 O2 Sat by Pulse Oximetry (%) 98 10/26/16 21:20 Constitutional: Yes: Well Nourished, Calm Eyes: Yes: WNL HENT: Yes: WNL Neck: Yes: WNL Cardiovascular: Yes: Regular Rate and Rhythm, S1, S2 Respiratory: Yes: CTA Bilaterally Gastrointestinal: Yes: WNL Extremities: Yes: WNL Edema: No Labs: CBC, BMP 10/26/16 05:00 10/23/16 12:50 INR, PTT INR 2.93 (0.82-1.09) H 10/27/16 05:35 Fibrinogen 216.0 mg/dL (238-498) L 10/21/16 11:45 Problem List - Problems (1) [id number] kidney injury Code(s): N17.9 - ACUTE KIDNEY FAILURE, UNSPECIFIED N18.9 - CHRONIC KIDNEY DISEASE, UNSPECIFIED (2) Anemia Code(s): D64.9 - ANEMIA, UNSPECIFIED (3) Deep vein thrombosis (DVT) of left iliofemoral vein Code(s): I82.422 - ACUTE EMBOLISM AND THROMBOSIS OF LEFT ILIAC VEIN (4) Demand ischemia Code(s): I24.8 - OTHER FORMS OF ACUTE ISCHEMIC HEART DISEASE (5) Hypertension Code(s): I10 - ESSENTIAL (PRIMARY) HYPERTENSION Qualifiers: Hypertension type: essential hypertension Qualified Code(s): I10 - Essential (primary) hypertension (6) DVT (deep venous thrombosis) Code(s): I82.409 - ACUTE EMBOLISM AND THOMBOS UNSP DEEP VN UNSP LOWER EXTREMITY Qualifiers: DVT location: lower extremity Assessment/Plan Extensive LLE DVT s/p thrombectomy/thrombolysis Likely PE +Troponins likely from demand ischemia vs PE Pulmonary HTN Acute on Chronic Renal Failure HTN PLAN - AC - ASA - beta cynthia, statin - PO as tolerated - O2 as needed - Follow INR - w/u for hypercoagulable state - CTA DR LANDERS
--- NOTE | 2016-10-27 18:11 | PN ---
Progress Note (short form) - Note Progress Note: Patient seen and examined. Patient states she is feeling well today and is not having pain. She was oob walking with a walker today with PT. She is urinating without issue and had a BM today. She is still tolerating her diet. She has no complaints, denies F/C/N/V, CP, SOB. Last Vital Signs Temp Pulse Resp BP Pulse Ox 97.8 F 66 20 121/50 98 10/27/16 16:23 10/27/16 16:23 10/27/16 16:23 10/27/16 16:23 10/27/16 10:00 CBC, BMP 10/26/16 05:00 10/23/16 12:50 INR 2.93 today Exam: Gen: NAD, resting comfortably in bed, pleasant and cooperative LE: left leg elevated on pillow, posterior knee suture in place, improving swelling, warm with +2 DP pulse Problem List - Problems (1) DVT (deep venous thrombosis) Assessment/Plan: s/p Perc thrombolysis/thrombectomy Lt iliofemoral vein & IVC, and EKOS cath ; s/p Completion venoplasty & stenting of Lt fem/iliac veins & IVC 10/21 Doing well, oral anticoagulation, INR 2.93 Order Coumadin 2.5 mg again tonight Continue PT, ambulate, elevate when in bed Code(s): I82.409 - ACUTE EMBOLISM AND THOMBOS UNSP DEEP VN UNSP LOWER EXTREMITY Qualifiers: DVT location: lower extremity
[2016-10-27] MEDS ORDERED: WARFARIN NA 2.5 MG TABLET (FP) PO ONE (18:23)
[2016-10-27] MEDS: CHLORHEXIDINE GLUCONATE 4% CLEANSER FOR DECOLONIZATION TP SCH (22:00)
[2016-10-28 07:30] LABS: MCH 30.5 pg (25.7-33.7); MCHC 33.2 g/dl (32.0-36.0); MEAN PLT VOLUME 9.9 fl (7.5-11.1); PLATELET COUNT 234 K/MM3 (134-434); RDW 14.2 % (11.6-15.6); WHITE BLOOD COUNT 5.3 K/mm3 (4.0-10.0)
[2016-10-28] MEDS: ASPIRIN 81 MG CHEWABLE TABLETS PO SCH (09:44)
[2016-10-28] MEDS: METOPROLOL SUCCINATE 25 MG TAB.SR.24H (FP) PO SCH (09:45)
[2016-10-28] MEDS: amLODIPine BESYLATE 2.5 MG TABLET (FP) PO SCH (09:45)
[2016-10-28] MEDS: PANTOPRAZOLE 40 MG TABLET (FP) PO SCH (09:45)
[2016-10-28] MEDS: PARoxetine HCL 20 MG TABLET (FP) PO SCH (09:45)
[2016-10-28 10:16] LABS: INR 2.66 (0.82-1.09); PROTHROMBIN TIME (PATIENT) 29.8 SEC (9.98-11.88)
--- NOTE | 2016-10-28 10:53 | PN ---
Progress Note, Physician History of Present Illness: Denies chest pain or dyspnea, LLE edema improved post intervention. Tolerating PT with walker assistance. - Current Medication List Current Medications: Active Medications Acetaminophen (Tylenol -) 650 mg PO Q6H PRN PRN Reason: FEVER OR PAIN Last Admin: 10/25/16 15:18 Dose: 650 mg Amlodipine Besylate (Norvasc -) 2.5 mg PO DAILY [facility] Last Admin: 10/28/16 09:45 Dose: 2.5 mg Aspirin (Asa -) 81 mg PO DAILY [facility] Last Admin: 10/28/16 09:44 Dose: 81 mg Chlorhexidine Gluconate (Hibiclens For Decolonization -) 1 applic TP HS [facility] Last Admin: 10/27/16 22:00 Dose: Not Given Metoprolol Succinate (Toprol Xl -) 25 mg PO DAILY [facility] Last Admin: 10/28/16 09:45 Dose: 25 mg Pantoprazole Sodium (Protonix -) 40 mg PO DAILY [facility] [place] Last Admin: 10/28/16 09:45 Dose: 40 mg Paroxetine HCl (Paxil -) 20 mg PO DAILY [facility] [place] Last Admin: 10/28/16 09:45 Dose: 20 mg - Objective Vital Signs: Vital Signs Temperature 98.0 F 10/28/16 07:44 Pulse Rate 59 L 10/28/16 07:44 Respiratory Rate 20 10/28/16 07:48 Blood Pressure 124/58 10/28/16 07:44 O2 Sat by Pulse Oximetry (%) 98 10/27/16 22:00 Constitutional: Yes: No Distress, Calm Neck: Yes: Supple Cardiovascular: Yes: Regular Rate and Rhythm Respiratory: Yes: Regular, Diminished Gastrointestinal: Yes: Normal Bowel Sounds, Soft Edema: Yes Edema: LLE: Trace Labs: CBC, BMP 10/28/16 05:35 10/23/16 12:50 INR, PTT INR 2.66 (0.82-1.09) H 10/28/16 05:35 Fibrinogen 216.0 mg/dL (238-498) L 10/21/16 11:45 - ....Imaging EKG: Report Reviewed (Tele: SB) Problem List - Problems (1) Deep vein thrombosis (DVT) of left iliofemoral vein Code(s): I82.422 - ACUTE EMBOLISM AND THROMBOSIS OF LEFT ILIAC VEIN (2) Pulmonary embolus Code(s): I26.99 - OTHER PULMONARY EMBOLISM WITHOUT ACUTE COR PULMONALE Qualifiers: Pulmonary embolism type: other Chronicity: acute (3) Demand ischemia Code(s): I24.8 - OTHER FORMS OF ACUTE ISCHEMIC HEART DISEASE (4) Hypertension Code(s): I10 - ESSENTIAL (PRIMARY) HYPERTENSION Qualifiers: Hypertension type: essential hypertension Qualified Code(s): I10 - Essential (primary) hypertension (5) [id number] kidney injury Code(s): N17.9 - ACUTE KIDNEY FAILURE, UNSPECIFIED N18.9 - CHRONIC KIDNEY DISEASE, UNSPECIFIED (6) Anemia Code(s): D64.9 - ANEMIA, UNSPECIFIED (7) Paroxysmal atrial fibrillation Code(s): I48.0 - PAROXYSMAL ATRIAL FIBRILLATION Assessment/Plan Echocardiography report noted LVH with normal LV systolic function and moderate to severe degree of pulmonary HTN 1. Chest pain syndrome CAD angina pectoris with demand ischemic injury 2. PAF [id number] score of 5 3. Probable PTE 4. Extensive left DVT post thrombolysis and thrombectomy left ilio-femoral vein and IVC (veno-plasty and stenting of left femoral and iliac veins and IVC) with therapeutic INR 5. HTN 6. Pulmonary HTN 7. Acute on CKD improved 8. Anemia post transfusion PLAN: 1. Continue Toprol XL 25 qd 2. Continue Norvasc 2.5 qd 3. Continue ASA and Coumadin as per INR with caution and close monitoring of Hg level 4. Consider obtaining chest CTA once renal function stabilized or as an alternative obtain V/Q scan 5. D/c planning
--- NOTE | 2016-10-28 12:13 | PN ---
Progress Note (short form) - Note Progress Note: Pt without any complaints, she is ambulating better. Vital Signs Period Temp Pulse Resp BP Sys/Nassar Pulse Ox Last 24 Hr 97.8 F-98.8 F 59-66 18-20 121-134/48-76 98-98 PE: GEN: A&0x3, NAD LE: left leg decreased swelling, posterior calf/thigh with some swelling but soft. Minimal ecchymosis at punture site.+2 DP pulses B/l INR, PTT INR 2.66 (0.82-1.09) H 10/28/16 05:35 Fibrinogen 216.0 mg/dL (238-498) L 10/21/16 11:45 Problem List - Problems (1) Deep vein thrombosis (DVT) of left iliofemoral vein Assessment/Plan: s/p thrombolysis/stent placement for DVT awaiting discharge planning f/u from Social Work continue coumadin, dose daily and follow INR Code(s): I82.422 - ACUTE EMBOLISM AND THROMBOSIS OF LEFT ILIAC VEIN
--- NOTE | 2016-10-28 12:25 | PN ---
Progress Note, Physician History of Present Illness: PULMONARY ALERT,FEELING BETTER,-SOB,-CP - Current Medication List Current Medications: Active Medications Acetaminophen (Tylenol -) 650 mg PO Q6H PRN PRN Reason: FEVER OR PAIN Last Admin: 10/25/16 15:18 Dose: 650 mg Amlodipine Besylate (Norvasc -) 2.5 mg PO DAILY [facility] Last Admin: 10/28/16 09:45 Dose: 2.5 mg Aspirin (Asa -) 81 mg PO DAILY [facility] Last Admin: 10/28/16 09:44 Dose: 81 mg Chlorhexidine Gluconate (Hibiclens For Decolonization -) 1 applic TP HS [facility] Last Admin: 10/27/16 22:00 Dose: Not Given Metoprolol Succinate (Toprol Xl -) 25 mg PO DAILY [facility] Last Admin: 10/28/16 09:45 Dose: 25 mg Pantoprazole Sodium (Protonix -) 40 mg PO DAILY [facility] Last Admin: 10/28/16 09:45 Dose: 40 mg Paroxetine HCl (Paxil -) 20 mg PO DAILY [facility] Last Admin: 10/28/16 09:45 Dose: 20 mg Warfarin Sodium (Coumadin -) 2.5 mg PO ONCE@1800 ONE Stop: 10/28/16 18:01 - Objective Vital Signs: Vital Signs Temperature 98.0 F 10/28/16 07:44 Pulse Rate 59 L 10/28/16 07:44 Respiratory Rate 20 10/28/16 07:48 Blood Pressure 124/58 10/28/16 07:44 O2 Sat by Pulse Oximetry (%) 98 10/27/16 22:00 Constitutional: Yes: Well Nourished, Calm Eyes: Yes: WNL HENT: Yes: WNL Neck: Yes: WNL Cardiovascular: Yes: Pulse Irregular, S1, S2 Respiratory: Yes: CTA Bilaterally Gastrointestinal: Yes: WNL Extremities: Yes: WNL, Other (LLE SWELLING IMPROVING) Labs: CBC, BMP 10/28/16 05:35 10/23/16 12:50 INR, PTT INR 2.66 (0.82-1.09) H 10/28/16 05:35 Fibrinogen 216.0 mg/dL (238-498) L 10/21/16 11:45 Problem List - Problems (1) Daiua-eh-njqmopq kidney injury Code(s): N17.9 - ACUTE KIDNEY FAILURE, UNSPECIFIED N18.9 - CHRONIC KIDNEY DISEASE, UNSPECIFIED (2) Anemia Code(s): D64.9 - ANEMIA, UNSPECIFIED (3) Deep vein thrombosis (DVT) of left iliofemoral vein Code(s): I82.422 - ACUTE EMBOLISM AND THROMBOSIS OF LEFT ILIAC VEIN (4) Demand ischemia Code(s): I24.8 - OTHER FORMS OF ACUTE ISCHEMIC HEART DISEASE (5) Hypertension Code(s): I10 - ESSENTIAL (PRIMARY) HYPERTENSION Qualifiers: Hypertension type: essential hypertension Qualified Code(s): I10 - Essential (primary) hypertension (6) DVT (deep venous thrombosis) Code(s): I82.409 - ACUTE EMBOLISM AND THOMBOS UNSP DEEP VN UNSP LOWER EXTREMITY Qualifiers: DVT location: lower extremity Assessment/Plan Extensive LLE DVT s/p thrombectomy/thrombolysis Likely PE +Troponins likely from demand ischemia vs PE Pulmonary HTN Acute on Chronic Renal Failure HTN PLAN - AC - ASA - beta cynthia, statin - PO as tolerated - O2 as needed - Follow INR - w/u for hypercoagulable state - CTA DR LANDERS
[2016-10-28] MEDS ORDERED: WARFARIN NA 2.5 MG TABLET (FP) PO ONE (18:00)
[2016-10-28] MEDS: CHLORHEXIDINE GLUCONATE 4% CLEANSER FOR DECOLONIZATION TP SCH (22:23)
[2016-10-29 07:31] VITALS: BP 139/62; PULSE 52; TEMP 98
[2016-10-29 07:46] LABS: INR 2.4 (0.82-1.09); PROTHROMBIN TIME (PATIENT) 26.9 SEC (9.98-11.88)
--- NOTE | 2016-10-29 08:51 | DS ---
Physical Exam: SUBJECTIVE: Patient seen and examined this morning 10/29/16, patient continues to feel better. She is having minimal pain and continues to ambulate. She is tolerating her diet and voiding without issue. She has no complaints and is looking forward to discharge to rehab today. OBJECTIVE: Vital Signs Temperature 98.0 F 10/29/16 07:27 Pulse Rate 52 L 10/29/16 07:27 Respiratory Rate 20 10/29/16 07:27 Blood Pressure 139/62 10/29/16 07:27 O2 Sat by Pulse Oximetry (%) 99 10/29/16 07:27 PHYSICAL EXAM GENERAL: The patient is awake, alert, and fully oriented, in no acute distress. HEAD: Normal with no signs of trauma. EYES: PERRL, extraocular movements intact, sclera anicteric, conjunctiva clear. ENT: Ears normal, nares patent, moist mucous membranes. NECK: Trachea midline LUNGS: Breath sounds equal, clear to auscultation bilaterally, no accessory muscle use. HEART: Regular rate and rhythm, S1, S2 without murmur, rub or gallop. ABDOMEN: Soft, nontender, nondistended, normoactive bowel sounds EXTREMITIES: Left leg with decreasing swelling, posterior calf/thigh with mild swelling, soft, minimal ecchymosis. +2 DP pulses bilat. NEUROLOGICAL: Normal speech. PSYCH: Normal mood, normal affect. SKIN: Warm, dry. LABS CBC,CMP WBC 5.3 K/mm3 (4.0-10.0) 10/28/16 05:35 RBC 2.71 M/mm3 (3.60-5.2) L 10/28/16 05:35 Hgb 8.3 GM/dL (10.7-15.3) L 10/28/16 05:35 Hct 24.9 % (32.4-45.2) L 10/28/16 05:35 MCV 92.0 fl (80-96) 10/28/16 05:35 MCHC 33.2 g/dl (32.0-36.0) 10/28/16 05:35 RDW 14.2 % (11.6-15.6) 10/28/16 05:35 Plt Count 234 K/MM3 (134-434) D 10/28/16 05:35 MPV 9.9 fl (7.5-11.1) 10/28/16 05:35 Neutrophils % 54.3 % (42.8-82.8) 10/26/16 05:00 Lymphocytes % 21.2 % (8-40) D 10/26/16 05:00 Monocytes % 16.3 % (3.8-10.2) H 10/26/16 05:00 Eosinophils % 6.9 % (0-4.5) H 10/26/16 05:00 Basophils % 1.3 % (0-2.0) 10/26/16 05:00 Sodium 148 mmol/L (136-145) H 10/23/16 12:50 Potassium 3.6 mmol/L (3.5-5.1) 10/23/16 12:50 Chloride 112 mmol/L (98-107) H 10/23/16 12:50 Carbon Dioxide 25 mmol/L (21-32) 10/23/16 12:50 Anion Gap 11 (8-16) 10/23/16 12:50 BUN 13 mg/dL (7-18) D 10/23/16 12:50 Creatinine 1.2 mg/dL (0.55-1.02) H 10/23/16 12:50 Creat Clearance w eGFR 39.02 (>60) 10/22/16 09:40 Random Glucose 103 mg/dL (74-106) 10/23/16 12:50 Calcium 7.9 mg/dL (8.5-10.1) L 10/23/16 12:50 Phosphorus 2.8 mg/dL (2.5-4.9) D 10/22/16 09:40 Magnesium 1.7 mg/dL (1.8-2.4) L 10/22/16 09:40 Total Bilirubin 0.9 mg/dL (0.2-1.0) D 10/22/16 09:40 AST 28 U/L (15-37) D 10/22/16 09:40 ALT 18 U/L (12-78) D 10/22/16 09:40 Alkaline Phosphatase 122 U/L (45-117) H D 10/22/16 09:40 Creatine Kinase 61 IU/L (26-192) 10/22/16 09:40 Troponin I 3.33 ng/ml (0.00-0.05) H* 10/22/16 09:40 B-Natriuretic Peptide 3093.42 pg/ml (5-450) H 10/22/16 09:40 Total Protein 4.8 g/dl (6.4-8.2) L 10/22/16 09:40 Albumin 2.4 g/dl (3.4-5.0) L 10/22/16 09:40 INR, PTT INR 2.40 (0.82-1.09) H 10/29/16 05:35 Fibrinogen 216.0 mg/dL (238-498) L 10/21/16 11:45 HOSPITAL COURSE: Date of Admission:10/20/16 Date of Discharge: 10/29/16 Patient is an 86yr old female with PMHx of HTN, Raynauds syndrome, GERD, and DVT of left leg, with inadequate response to anticoagulation therapy for which she underwent percutaneous thrombolysis and thrombectomy of the left iliofemoral vein and IVC along with placement of EKOS catheter on 10/20/[address] Wheeler. The patient returned to the OR on 10/21/16 for a completion venoplasty and stenting of left femoral and iliac veins and IVC. Following the first procedure the patient remained in the ICU with the EKOS catheter, to continue TPA and heparin. Overnight the patient developed some chest tightness without dyspnea that resolved. She was found to have elevated troponin and EKG changes. The patient was evaluated and monitored by cardiology thoughout her stay and was thought to have demand ischemia. The patient had an unchanged echocardiogram and troponins decreased. Patient will follow-up with cardiology following discharge. She received one unit of PRBC due to decreased H&H on . Following her second procedure she was transitioned from IV heparin to Coumadin. The patient's left leg swelling improved, she was able to ambulate with a walker with physical therapy, she has tolerated her diet and has been voiding without issue. The patient's INR should be between 2 and 2.5 and the patient will be discharged with Coumadin 2.5 mg PO at night. On 10/29/16, it was felt the patient was ready for discharge to [facility]. Minutes to complete discharge: 30 Visit type - Case Type Case Type: Scheduled Admission
--- NOTE | 2016-10-29 09:36 | PN ---
Progress Note, Physician Chief Complaint: Not in distress Tolerating therapy History of Present Illness: Patient was seen and examined. Awake and alert. Chart was reviewed Denies chest pain, SOB or palpitations Afebrile and comfortable - Current Medication List Current Medications: Active Medications Acetaminophen (Tylenol -) 650 mg PO Q6H PRN PRN Reason: FEVER OR PAIN Last Admin: 10/25/16 15:18 Dose: 650 mg Amlodipine Besylate (Norvasc -) 2.5 mg PO DAILY [facility] Last Admin: 10/28/16 09:45 Dose: 2.5 mg Aspirin (Asa -) 81 mg PO DAILY [facility] Last Admin: 10/28/16 09:44 Dose: 81 mg Chlorhexidine Gluconate (Hibiclens For Decolonization -) 1 applic TP HS [facility] Last Admin: 10/28/16 22:23 Dose: Not Given Metoprolol Succinate (Toprol Xl -) 25 mg PO DAILY [facility] Last Admin: 10/28/16 09:45 Dose: 25 mg Pantoprazole Sodium (Protonix -) 40 mg PO DAILY [facility] Last Admin: 10/28/16 09:45 Dose: 40 mg Paroxetine HCl (Paxil -) 20 mg PO DAILY [facility] Last Admin: 10/28/16 09:45 Dose: 20 mg - Objective Vital Signs: Vital Signs Temperature 98.0 F 10/29/16 07:27 Pulse Rate 52 L 10/29/16 07:27 Respiratory Rate 20 10/29/16 07:27 Blood Pressure 139/62 10/29/16 07:27 O2 Sat by Pulse Oximetry (%) 99 10/29/16 07:27 Neck: Yes: Supple Cardiovascular: Yes: Regular Rate and Rhythm, S1, S2 Respiratory: Yes: CTA Bilaterally Gastrointestinal: Yes: Normal Bowel Sounds, Soft. No: Tenderness Edema: Yes Edema: LLE: 1+ Additional Findings/Remarks: Review of Systems Constitutional: Denies: Chills or Fever Cardiovascular: Denies chest pain, SOB or palpitations Respiratory: Denies: Cough or Sputum Production, no hemoptysis Gastrointestinal: Denies: Diarrhea, Constipation or Abdominal Pain Genitourinary: No symptoms reported Neuro: No seizures or syncope Labs: INR, PTT INR 2.40 (0.82-1.09) H 10/29/16 05:35 Fibrinogen 216.0 mg/dL (238-498) L 10/21/16 11:45 Problem List - Problems (1) Deep vein thrombosis (DVT) of left iliofemoral vein Code(s): I82.422 - ACUTE EMBOLISM AND THROMBOSIS OF LEFT ILIAC VEIN (2) Demand ischemia Code(s): I24.8 - OTHER FORMS OF ACUTE ISCHEMIC HEART DISEASE (3) Paroxysmal atrial fibrillation Code(s): I48.0 - PAROXYSMAL ATRIAL FIBRILLATION (4) Hypertension Code(s): I10 - ESSENTIAL (PRIMARY) HYPERTENSION Qualifiers: Hypertension type: essential hypertension Qualified Code(s): I10 - Essential (primary) hypertension Assessment/Plan 1. Chest pain syndrome with demand ischemic injury - probable PTE 2. Extensive left DVT post thrombolysis and thrombectomy left iliofemoral vein and IVC. Completion venoplasty and stenting of left femoral and iliac veins and IVC. 3. HTN 4. Acute on CKD referable to hemodynamic alterations 5. Anemia post transfusion 6. Pulm HTN 7. PAF currently in sinus rhythm PLAN: 1. ASA 81 mg QD, Norvasc 2.5 mg QD and Toprol XL 25 mg QD 2. Consider obtaining chest CTA vs. V/Q scan once clinically stable to rule out PE 3. Further cardiac work up to rule out CAD once clinically stable. 4. Continue Coumadin per INR Discharge planning Angel Hutchinson MD
[2016-10-29] MEDS: PARoxetine HCL 20 MG TABLET (FP) PO SCH (09:37)
[2016-10-29] MEDS: ASPIRIN 81 MG CHEWABLE TABLETS PO SCH (09:37)
[2016-10-29] MEDS: METOPROLOL SUCCINATE 25 MG TAB.SR.24H (FP) PO SCH (09:37)
[2016-10-29] MEDS: PANTOPRAZOLE 40 MG TABLET (FP) PO SCH (09:37)
[2016-10-29] MEDS: amLODIPine BESYLATE 2.5 MG TABLET (FP) PO SCH (09:37)
== END 2016-10-29 11:24 | DRG 270 ==
LOC: JASUSAT 12:28 → EDSTATUS 14:00 → UNDOADMIN 17:06 → JICU 17:06 → J4W 10-22 17:35
PROVIDERS: ADMIT Surgery; ATTEND Surgery
PROC: 06CN3ZZ Extirpation of Matter from Left Femoral Vein, Percutaneous Approach (ICD-10-PCS; 2016-10-20)
PROC: 06C03ZZ Extirpation of Matter from Inferior Vena Cava, Percutaneous Approach (ICD-10-PCS; 2016-10-20)
PROC: 3E03317 Introduction of Other Thrombolytic into Peripheral Vein, Percutaneous Approach (ICD-10-PCS; 2016-10-20)
PROC: 3E033GC Introduction of Other Therapeutic Substance into Peripheral Vein, Percutaneous Approach (ICD-10-PCS; 2016-10-20)
PROC: 3E04317 Introduction of Other Thrombolytic into Central Vein, Percutaneous Approach (ICD-10-PCS; 2016-10-20)
PROC: 3E04317 Introduction of Other Thrombolytic into Central Vein, Percutaneous Approach (ICD-10-PCS; 2016-10-20)
PROC: 06H033Z Insertion of Infusion Device into Inferior Vena Cava, Percutaneous Approach (ICD-10-PCS; 2016-10-20)
PROC: B549ZZA Ultrasonography of Inferior Vena Cava, Guidance (ICD-10-PCS; 2016-10-20)
PROC: 06CD3ZZ Extirpation of Matter from Left Common Iliac Vein, Percutaneous Approach (ICD-10-PCS; principal; 2016-10-20 14:00)
PROC: 06703DZ Dilation of Inferior Vena Cava with Intraluminal Device, Percutaneous Approach (ICD-10-PCS; 2016-10-21)
PROC: 067D3DZ Dilation of Left Common Iliac Vein with Intraluminal Device, Percutaneous Approach (ICD-10-PCS; 2016-10-21)
PROC: 067Y3DZ Dilation of Lower Vein with Intraluminal Device, Percutaneous Approach (ICD-10-PCS; 2016-10-21)
PROC: 06PYX3Z Removal of Infusion Device from Lower Vein, External Approach (ICD-10-PCS; 2016-10-21)
PROC: 30233N1 Transfusion of Nonautologous Red Blood Cells into Peripheral Vein, Percutaneous Approach (ICD-10-PCS; 2016-10-22)
DX: I82.422 Acute embolism and thrombosis of left iliac vein (principal); I26.99 Other pulmonary embolism without acute cor pulmonale; N17.9 Acute kidney failure, unspecified; I24.8 Other forms of acute ischemic heart disease; K21.9 Gastro-esophageal reflux disease without esophagitis; I73.00 Raynaud's syndrome without gangrene; I16.0 Hypertensive urgency; R31.9 Hematuria, unspecified; I27.2 Other secondary pulmonary hypertension; I12.9 Hypertensive chronic kidney disease with stage 1 through stage 4 chronic kidney disease, or unspecified chronic kidney disease; N18.9 Chronic kidney disease, unspecified; D64.9 Anemia, unspecified; I48.0 Paroxysmal atrial fibrillation; I25.119 Atherosclerotic heart disease of native coronary artery with unspecified angina pectoris
CPT/HCPCS: 36415; 36430; 71010-TC; 76000-TC; 80048; 80053; 82550; 83735; 83880; 84100; 84484; 85025; 85027; 85384; 85610; 85730; 86900; 86901; 86922; 87040; 93005; 93010; 93306-TC; 94010; 94760; 97001-GP; 97116-GP; J1644; J2997; P9038; P9058

== ENCOUNTER 2018-11-25 09:32 | Emergency (ER) | payer OTHER, BC ==
[2018-11-25] MEDS ORDERED: AMOXICILLIN 500 MG CAPSULE (FP) PO ONE (09:50)
[2018-11-25] MEDS ORDERED: ACETAMINOPHEN 500 MG TABLET (FP) PO ONE (09:50)
[2018-11-25 09:51] VITALS: BP 152/73; PULSE 67; TEMP 97.6; BMI 25.7
--- NOTE | 2018-11-25 09:57 | PDOC ---
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 Pt said the ear pain started yesterday and this morning she could not open her jaw all the way due to pain. She denies fevers, chills, trauma, numbness/tingling, hearing loss, tinnitus. She has had a cold for the past few weeks. PMD: Gair PMH: DVT PSH: Cholecystectomy Meds: Coumadin Allergies: nkda Social: denies <Lainey Archer - Last Filed: 11/25/18 10:52> - General Chief Complaint: Ear Problem Stated Complaint: LEFT EAR PAIN AND JAW TIGHT Time Seen by Provider: 11/25/18 09:37 Past History <Glenny Cedillo Alice - Last Filed: 11/25/18 10:10> - Past Medical History Anemia: Yes Asthma: No Cancer: No Cardiac Disorders: Yes (MITRAL VALVE PROLAPSE) CVA: No COPD: No CHF: No Dementia: No Diabetes: No GI Disorders: Yes (GERD) Disorders: Yes (INCONTINENCE) HTN: Yes Hypercholesterolemia: No Liver Disease: No Seizures: No Thyroid Disease: No Other medical history: DVT LEFT LEG - Surgical History Abdominal Surgery: Yes (OVARIAN CYSTS REMOVED) Appendectomy: No Cardiac Surgery: No Cholecystectomy: Yes Lung Surgery: No Neurologic Surgery: No Orthopedic Surgery: No - Suicide/Smoking/Psychosocial Hx Smoking History: Never smoked Have you smoked in the past 12 months: No Number of Cigarettes Smoked Daily: 0 Information on smoking cessation initiated: No Hx Alcohol Use: No Drug/Substance Use Hx: No Substance Use Type: None Hx Substance Use Treatment: No <Lainey Archer - Last Filed: 11/25/18 10:52> - Past Medical History Allergies/Adverse Reactions: Allergies Allergy/AdvReac Type Severity Reaction Status Date / Time Stock Ragweed Pollen Mixture Allergy Mild Cough Verified 11/25/18 09:40 No Known Drug Allergies Allergy Verified 11/25/18 09:40 Home Medications: Ambulatory Orders Aspirin [ASA -] 81 mg PO DAILY tab.chew 10/28/16 Metoprolol Succinate [Toprol XL -] 25 mg PO DAILY tab.sr.24h 10/28/16 Amlodipine Besylate [Norvasc -] 2.5 mg PO DAILY #0 10/29/16 Pantoprazole Sodium [Protonix] 40 mg PO DAILY #0 10/29/16 Cholecalciferol (Vitamin D3) [Vitamin D3] 5,000 unit PO DAILY 09/22/17 Pyridoxine HCl (B-6) [Vitamin B6] 50 mg PO DAILY 09/22/17 Amoxicillin - [Amoxicillin 875mg Tablet -] 875 mg PO BID 10 Days #20 tab Paroxetine HCl [Paxil -] 10 mg PO DAILY 11/25/18 Review of Systems - Review of Systems Constitutional: No: Chills, Fever, Weakness HEENTM: Yes: See HPI, Ear Pain, Other (L jaw pain). No: Eye Pain, Nose Pain, Tinnitus, Throat Pain, Mouth Swelling Respiratory: No: Cough, Shortness of Breath Cardiac (ROS): No: Chest Pain, Lightheadedness, Palpitations ABD/GI: No: Constipated, Diarrhea, Nausea, Vomiting, Abdominal cramping : No: Symptoms Reported Musculoskeletal: No: Symptoms Reported Integumentary: No: Symptoms Reported Neurological: No: Headache, Numbness, Tingling, Weakness <Lainey Archer - Last Filed: 11/25/18 10:52> *Physical Exam - Vital Signs Last Vital Signs Temp Pulse Resp BP Pulse Ox 97.6 F 67 16 152/73 98 11/25/18 09:33 11/25/18 09:33 11/25/18 09:33 11/25/18 09:33 11/25/18 09:33 <Glenny Cedillo - Last Filed: 11/25/18 10:10> - Vital Signs Last Vital Signs Temp Pulse Resp BP Pulse Ox 97.6 F 67 16 152/73 98 11/25/18 09:33 11/25/18 09:33 11/25/18 09:33 11/25/18 09:33 11/25/18 09:33 - Physical Exam General Appearance: Yes: Nourished, Appropriately Dressed. No: Apparent Distress HEENT: positive: EOMI, ZENA, Pharynx Normal, Pharyngeal Erythema, TM Erythema ( L TM erythema), Other (L tragus tenderness. Normal L ear canal, no granulations or pustules). negative: Scleral Icterus (R), Scleral Icterus (L), Tonsillar Exudate, Tonsillar Erythema, TM Bulging, TM Dull Neck: positive: Trachea midline, Supple. negative: Lymphadenopathy (R), Lymphadenopathy (L) Respiratory/Chest: positive: Lungs Clear, Normal Breath Sounds. negative: Crackles, Rales, Rhonchi, Stridor Cardiovascular: positive: Regular Rhythm, Regular Rate, S1, S2. negative: Edema , JVD, Murmur Vascular Pulses: Carotid (R): 2+, Carotid (L): 2+, Dorsalis-Pedis (R): 2+, Doralis-Pedis (L): 2+ Gastrointestinal/Abdominal: positive: Normal Bowel Sounds, Soft. 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, Fully Oriented, Alert, Normal Mood/ Affect, Normal Response, Motor Strength 5/5 <Lainey Archer - Last Filed: 11/25/18 10:52> Moderate Sedation - Procedure Monitoring Vital Signs: Procedure Monitoring Vital Signs Temperature 97.6 F 11/25/18 09:33 Pulse Rate 67 11/25/18 09:33 Respiratory Rate 16 11/25/18 09:33 Blood Pressure 152/73 11/25/18 09:33 O2 Sat by Pulse Oximetry (%) 98 11/25/18 09:33 <Glenny Cedillo - Last Filed: 11/25/18 10:10> - Procedure Monitoring Vital Signs: Procedure Monitoring Vital Signs Temperature 97.6 F 11/25/18 09:33 Pulse Rate 67 11/25/18 09:33 Respiratory Rate 16 11/25/18 09:33 Blood Pressure 152/73 11/25/18 09:33 O2 Sat by Pulse Oximetry (%) 98 11/25/18 09:33 <Lainey Archer - Last Filed: 11/25/18 10:52> Medical Decision Making - Medical Decision Making 11/25/18 09:54 Pt is an 88 yo F with 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 Pt said the ear pain started yesterday and this morning she could not open her jaw all the way due to pain. She denies fevers, chills, trauma, numbness/tingling, hearing loss, tinnitus. She has had a cold for the past few weeks. Vitals: wnl, afebrile PE: L TM erythema. Normal ear canal. No granulations. Tragus tenderness. Normal cranial nerves. Ddx includes but not limited to: otitis media, otitis externa, VZV, Most likely otitis media resulting from previous URI. Low suspicion for otitis externa at this time given clinical exam findings. Will give Tylenol for pain and Augmentin. Will give Rx for Augmentin. Follow up for ENT given. Pt has appointment with PMD next week. Given strict return precautions <Lainey Archer - Last Filed: 11/25/18 10:52> *DC/Admit/Observation/Transfer <Glenny Cedillo - Last Filed: 11/25/18 10:10> - Discharge Dispostion Decision to Admit order: No <Lainey Archer - Last Filed: 11/25/18 10:52> Diagnosis at time of Disposition: Otitis media Qualifiers: Otitis media type: unspecified Laterality: left Qualified Code(s): H66.92 - Otitis media, unspecified, left ear - Discharge Dispostion Disposition: HOME Condition at time of disposition: Improved - Prescriptions Prescriptions: Amoxicillin - [Amoxicillin 875mg Tablet -] 875 mg PO BID 10 Days #20 tab - Referrals Referrals: Carlo Bansal MD [Primary Care Provider] - Adria Spicer MD [Staff Physician] - - Patient Instructions Printed Discharge Instructions: Middle Ear Infection Additional Instructions: You were seen in the emergency room today for pain in the left ear and jaw. It looks like you have an ear infection. A prescription for an antibiotic was sent to your pharmacy. Please take as directed. You can take Tylenol for pain as needed. Please make sure to make an appointment with your primary care doctor this week. I recommend making an appointment with an ENT doctor. Dr. Spicer: Come back to the emergency room if pain gets worse, you have hearing loss, you develop fever, you notice a rash or if any new concerning symptom develops. Thank you - Post Discharge Activity
[2018-11-25] MEDS ORDERED: AMOX TR/POT CLAV 875MG/125MG TABLETS (FP) PO ONE (09:59)
[2018-11-25] MEDS ORDERED: ACETAMINOPHEN 325 MG TABLET (FP) ONE (10:15)
[2018-11-25] MEDS ORDERED: AMOX TR/POT CLAV 875MG/125MG TABLETS (FP) ONE (10:15)
--- NOTE | 2018-11-25 10:15 | PDOC ---
Attending Attestation - Resident Resident Name: SuziSaLainey - ED Attending Attestation I have performed the following: I have examined & evaluated the patient, The case was reviewed & discussed with the resident, I agree w/resident's findings & plan - HPI HPI: 11/25/18 10:12 88 YOF with h/o HTN, HLD, DVT on Coumadin, pAfib, pulmonary HTN, CAD, CKD, anemia, GERD depression presenting with left ear pain since yesterday, associated with jaw pain and difficulty opening. no f/c, nasal congestion. +URI sx beginning last week Stopped on coumadin x 2 weeks. no cp or sob. No trauma. No neuro changes, tinnitis or hearing deficits. - Physicial Exam PE: 11/25/18 10:13 NAD well appearing. NCAT, PERRL, EOMI, clear conjunctiva, anicteric, moist mucus membranes, clear oropharynx. Airway patent, normal phonation, speech clear.. Uvula midline. No sinus tenderness, Left T.M. with erythematous ring, normal auditory canal without erythema or lesions, no pinna tenderness to manipulation. neck supple, no LAD RRR, lungs clear. WWP in all extremities. no peripheral edema. - Medical Decision Making 11/25/18 10:14 hpi as documented VS wnl. nontoxic ddx OE vs AOM vs viral syndrome no e/o trismus, able to speak findings c/w left AOM, no OE evidence treat with amoxicillin x 10 day course PCP followup,. ENT referral return precautions discussed. pt verbalized understanding of impression and plan and treatment of AOM
== END 2018-11-25 10:23 | disposition home or self-care (01) ==
LOC: FER 09:32
DX: H66.92 Otitis media, unspecified, left ear (principal); Z86.718 Personal history of other venous thrombosis and embolism; Z79.01 Long term (current) use of anticoagulants; I10 Essential (primary) hypertension; K21.9 Gastro-esophageal reflux disease without esophagitis
CPT/HCPCS: 99282-25

== ENCOUNTER 2019-05-09 18:40 | Emergency (ER) | payer OTHER, BC ==
[2019-05-09 18:45] VITALS: BP 138/48; PULSE 56; TEMP 98.4; BMI 25.7
--- NOTE | 2019-05-09 18:45 | PDOC ---
History of Present Illness <Glenny Cedillo - Last Filed: 05/09/19 19:31> - History of Present Illness Initial Comments: Ms. Kim is a 87 y/o female with PMH of DVT, HTN, and a-fib, presenting today for insect bite to the right medial thigh. Reports that this happened yesterday in the garden when she felt a bite to her right thigh. She is concerned that it is a bee bite, but is unsure. Reports that the area is itchy throughout and tender at the bite site. Reports mild yellow possibly yellow purulent discharge. Denies fever, denies shortness of breath. <Garth Pittman - Last Filed: 05/09/19 19:41> - General Chief Complaint: Bite Stated Complaint: bite to right thigh Time Seen by Provider: 05/09/19 18:44 Past History <NguyenGlennyreinaldo Jenkins - Last Filed: 05/09/19 19:31> - Past Medical History Anemia: Yes Asthma: No Cancer: No Cardiac Disorders: Yes (MITRAL VALVE PROLAPSE) CVA: No COPD: No CHF: No Dementia: No Diabetes: No GI Disorders: Yes (GERD) Disorders: Yes (INCONTINENCE) HTN: Yes Hypercholesterolemia: No Liver Disease: No Seizures: No Thyroid Disease: No - Surgical History Abdominal Surgery: Yes (OVARIAN CYSTS REMOVED) Appendectomy: No Cardiac Surgery: No Cholecystectomy: Yes Lung Surgery: No Neurologic Surgery: No Orthopedic Surgery: No - Suicide/Smoking/Psychosocial Hx Smoking History: Never smoked Have you smoked in the past 12 months: No Number of Cigarettes Smoked Daily: 0 Hx Alcohol Use: No Drug/Substance Use Hx: No Substance Use Type: None Hx Substance Use Treatment: No <Garth Pittman - Last Filed: 05/09/19 19:41> - Past Medical History Allergies/Adverse Reactions: Allergies Allergy/AdvReac Type Severity Reaction Status Date / Time Stock Ragweed Pollen Mixture Allergy Mild Cough Verified 05/09/19 18:41 No Known Drug Allergies Allergy Verified 05/09/19 18:41 Home Medications: Ambulatory Orders Aspirin [ASA -] 81 mg PO DAILY tab.chew 10/28/16 Metoprolol Succinate [Toprol XL -] 25 mg PO DAILY tab.sr.24h 10/28/16 Amlodipine Besylate [Norvasc -] 2.5 mg PO DAILY #0 10/29/16 Pantoprazole Sodium [Protonix] 40 mg PO DAILY #0 10/29/16 Cholecalciferol (Vitamin D3) [Vitamin D3] 5,000 unit PO DAILY 09/22/17 Pyridoxine HCl (B-6) [Vitamin B6] 50 mg PO DAILY 09/22/17 Paroxetine HCl [Paxil -] 10 mg PO DAILY 11/25/18 Review of Systems - Review of Systems Able to Perform ROS?: Yes Is the patient limited French proficient: No Constitutional: Yes: See HPI. No: Chills, Diaphoresis, Fever HEENTM: Yes: See HPI. No: Throat Pain, Throat Swelling, Difficulty Swallowing, Mouth Swelling Respiratory: Yes: See HPI, Orthopnea. No: Cough, Shortness of Breath, Stridor, Wheezing ABD/GI: No: Constipated, Diarrhea Musculoskeletal: Yes: See HPI. No: Joint Pain, Joint Swelling, Joint Stiffness Integumentary: Yes: See HPI, Erythema (right medial thigh ), Pruritus. No: Bruising, Dryness, Flushing, Pallor Neurological: Yes: See HPI. No: Numbness, Paresthesia, Weakness <Garth Pittman - Last Filed: 05/09/19 19:41> *Physical Exam - Vital Signs Last Vital Signs Temp Pulse Resp BP Pulse Ox 98.4 F 56 L 18 138/48 L 100 05/09/19 18:40 05/09/19 18:40 05/09/19 18:40 05/09/19 18:40 05/09/19 18:40 <Glenny Cedillo - Last Filed: 05/09/19 19:31> - Physical Exam General Appearance: Yes: Nourished, Appropriately Dressed. No: Apparent Distress HEENT: positive: EOMI, ZENA, Normal Voice, TMs Normal, Pharynx Normal, Other ( moist mucous membranes ). negative: Muffled/Hoarse voice, Pharyngeal Erythema, Tonsillar Exudate, Tonsillar Erythema, Nasal Congestion Neck: positive: Trachea midline, Supple. negative: Tender, Rigid Respiratory/Chest: positive: Lungs Clear, Normal Breath Sounds. negative: Chest Tender, Respiratory Distress, Accessory Muscle Use Cardiovascular: positive: Regular Rhythm, Regular Rate Vascular Pulses: Dorsalis-Pedis (R): 2+, Doralis-Pedis (L): 2+ Gastrointestinal/Abdominal: positive: Normal Bowel Sounds, Flat, Soft. negative : Tender, Organomegaly Musculoskeletal: positive: CVA Tenderness Extremity: positive: Normal Capillary Refill, Normal Range of Motion, Swelling, Erythema (right medial thigh, measuring 4cm x 6cm). negative: Pedal Edema Integumentary: positive: Dry, Warm, Erythema, Rash, Swelling. 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, Fully Oriented, Alert, Normal Mood/ Affect, Normal Response, Motor Strength 5/5 <Garth Pittman - Last Filed: 05/09/19 19:41> ED Treatment Course - Medications Given in the ED: ED Medications Discontinued Medications Generic Name Dose Route Start Last Admin Trade Name Freq PRN Reason Stop Dose Admin Diphenhydramine HCl 50 mg 05/09/19 19:07 05/09/19 19:11 Benadryl - PO 05/09/19 19:08 50 mg ONCE ONE Administration <Glenny Cedillo - Last Filed: 05/09/19 19:31> Medical Decision Making - Medical Decision Making 05/09/19 19:00 88F with PMH of DVT, HTN, a-fib, presenting with insect bite to the right medial thigh. Erythematous, itchy patch measuring 4cm x 6cm seen on exam. No systemic symptoms, no fever, no shortness of breath. DDx includes allergic reaction to insect bites vs less likely cellulitis vs less likely abscess. Will give 50 mg Benadryl PO in the ED. Plan to discharge home, return if fever, chills, purulent discharge, increased redness or pain. <Garth Pittman - Last Filed: 05/09/19 19:41> *DC/Admit/Observation/Transfer <Glenny Cedillo - Last Filed: 05/09/19 19:31> - Discharge Dispostion Decision to Admit order: No <Garth Pittman - Last Filed: 05/09/19 19:41> Diagnosis at time of Disposition: Insect bite Qualifiers: Encounter type: initial encounter Site of insect bite: thigh Laterality: right Qualified Code(s): S70.361A - Insect bite (nonvenomous), right thigh, initial encounter - Discharge Dispostion Disposition: HOME Condition at time of disposition: Stable - Referrals - Patient Instructions Printed Discharge Instructions: DI for Insect Bites and Stings Additional Instructions: Please take Benadryl 50 mg every 8 hours. Please use topical cream ( hydrocortisone 1%) over the itchy area as needed. Please return to the emergency room if you begin experiencing fever, chills, purulent discharge, increased redness, or for any other concerns.
[2019-05-09] MEDS ORDERED: diphenhydrAMINE HCL 25 MG CAPSULE (FP) PO ONE (19:07)
[2019-05-09] MEDS ORDERED: diphenhydrAMINE HCL 50 MG CAPSULE ONE (19:08)
--- NOTE | 2019-05-09 19:27 | PDOC ---
Documentation entered by Darryl Cummings SCRIBE, acting as scribe for Glenny Cedillo MD. Glenny Cedillo MD: This documentation has been prepared by the Zoila jiang Renju, SCRIBE, under my direction and personally reviewed by me in its entirety. I confirm that the documentation accurately reflects all work, treatment, procedures, and medical decision making performed by me. Attending Attestation - Resident Resident Name: Garth Pittman - ED Attending Attestation I have performed the following: I have examined & evaluated the patient, The case was reviewed & discussed with the resident, I agree w/resident's findings & plan - HPI HPI: 05/09/19 19:18 88 yo F with hx of HTN, HLD, DVT on Coumadin, pAfib, pulmonary HTN, CAD, CKD, anemia, GERD, and depression who presents to the ED for evaluation of right inner thigh swelling and redness after receiving a bite yesterday evening while gardening. She reports waking this morning with redness and swelling to the right thigh. Patient reports taking benadryl and using bacitracin ointment to the afflicted area last night with minimal relief to her symptoms. Denies fever, chills, chest pain, SOB, palpitations, dizziness, weakness, N, V. Allergies: Stock Ragweed Pollen Mixture, No known drug allergies. Social history: Lives with family. No tobacco, ETOH or drug use. Surgical history: Ovarian cysts removed, cholecystectomy Meds: as documented in EMR 05/09/19 19:19 - Physicial Exam PE: 05/09/19 19:19 General: NAD, well appearing Resp: no respiratory distress. Vascular: 2+ DP pulses symmetric and equal. Back: no midline tenderness, no stepoffs, FROM MSK: notable for soft compartments, Cap refill <2 sec. 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 Plantar flexion and dorsiflexion 5/5. FROM. Sensation grossly intact to light touch. No calf tenderness. Neuro: alert, no focal neurologic deficits Skin: color normal color, warm and well perfused. Cap refill <2 sec area of erythema to rt inner thigh, area demarcated, no firmness. central puncture site, no drainage or purulence. no malodor. no tenderness 05/09/19 19:20 - Medical Decision Making 05/09/19 19:21 hpi as documented VS reviewed. no fever, no systemic sx area demarcated. appears 2/2 inflammatory reaction and allergic reaction to insect bite no purulence or infectious sx. no abx indicated, risks outweigh benefits at this time with demarcation, erythema retracting, no firmness or s/s fluctuance to suggest abscess. topical ice hydrocortisone 1% otc benadryl for itch/redness, can take PO, side effect profile discussed DC with family member, wound care, prevention of insect bites, protective gear outdoors. return precautions for infection.
== END 2019-05-09 19:18 | disposition home or self-care (01) ==
LOC: FER 18:40
DX: S70.361A Insect bite (nonvenomous), right thigh, initial encounter (principal); W57.XXXA Bitten or stung by nonvenomous insect and other nonvenomous arthropods, initial encounter; Y93.89 Activity, other specified; Y92.89 Other specified places as the place of occurrence of the external cause; I10 Essential (primary) hypertension; I48.91 Unspecified atrial fibrillation; Z86.718 Personal history of other venous thrombosis and embolism
CPT/HCPCS: 99282-25

== ENCOUNTER 2019-06-30 10:10 | Day surgery (SDC) | payer OTHER, BC ==
[2019-06-30] MEDS ORDERED: EPINEPHrine/PF 1 MG/1 ML (1:1,000) AMPULE ONE (10:36)
[2019-06-30] MEDS ORDERED: BUPIVACAINE HCL/PF 0.25% (2.5MG/ML) 10 ML VIAL ONE (10:37)
[2019-06-30] MEDS ORDERED: LIDOCAINE 1%-EPI 1:100,000 30 ML MDV IJ ONE (10:49)
[2019-06-30] MEDS ORDERED: ceFAZolin SODIUM 1 GM VIAL ONE (11:00)
[2019-06-30] MEDS ORDERED: PROPOFOL 20 ML ONE ×3 (13:22→15:01)
[2019-06-30] MEDS ORDERED: ROCURONIUM BROMIDE 50 MG/5 ML SYRINGE ONE (13:22)
[2019-06-30] MEDS ORDERED: EPHEDRINE SULFATE/0.9% NACL/PF 50 MG/10 ML SYRINGE NR ONE (13:22)
[2019-06-30] MEDS ORDERED: MIDAZOLAM HCL 2 MG/2 ML SINGLE DOSE VIAL ONE (13:24)
[2019-06-30] MEDS ORDERED: ceFAZolin SODIUM 1 GM VIAL IVPB ONE ×2 (14:00)
[2019-06-30] MEDS ORDERED: LIDOCAINE 1%/EPI 1:100000 (20 ML MULTI DOSE VIAL) PNB ONE (14:14)
[2019-06-30] MEDS ORDERED: MINERAL OIL 25 ML OIL TP ONE (16:04)
[2019-06-30] MEDS ORDERED: NEOSTIGMINE METHYLSULFATE 0.5 MG/ML - 10 ML MDV ONE (16:06)
[2019-06-30] MEDS ORDERED: GLYCOPYRROLATE 0.2 MG/1 ML VIAL ONE ×2 (16:06)
[2019-06-30] MEDS ORDERED: DEXAMETHASONE SOD PHOSPHATE 4 MG/1 ML VIAL ONE ×4 (16:06→17:41)
[2019-06-30] MEDS ORDERED: LIDOCAINE HCL 1%, 10 MG/ML (20ML VIAL) ONE (16:07)
[2019-06-30] MEDS ORDERED: LIDOCAINE HCL 2% 100 MG/5 ML DISP.SYRIN ONE ×2 (16:29)
[2019-06-30] MEDS ORDERED: LIDOCAINE HCL/PF 2% SDV 5ML VIAL ONE (16:29)
[2019-06-30] MEDS ORDERED: ONDANSETRON 4 MG/2 ML VIAL IVPB PRN (16:49)
[2019-06-30] MEDS ORDERED: oxyCODONE HCL 5 MG TABLET PO PRN ×2 (16:49→16:55)
--- NOTE | 2019-06-30 16:58 | OP ---
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
[2019-06-30] MEDS ORDERED: LACTATED RINGERS SOLUTION 1,000 ML IV SCH ×2 (17:00)
[2019-06-30] MEDS ORDERED: ONDANSETRON 4 MG/2 ML VIAL ONE ×2 (17:20→18:44)
[2019-06-30] MEDS: ONDANSETRON 4 MG/2 ML VIAL IVPUSH PRN ×2 (17:20→21:58)
[2019-06-30] MEDS ORDERED: DEXAMETHASONE SOD PHOSPHATE 4 MG/1 ML VIAL IVPUSH ONE (18:02)
[2019-06-30] MEDS ORDERED: SCOPOLAMINE HYDROBROMIDE 1 PATCH PATCH.TD72 ONE (18:45)
[2019-06-30] MEDS ORDERED: ONDANSETRON 4 MG/2 ML VIAL IVPUSH ONE (18:50)
[2019-07-01 02:25] VITALS: BMI 25.0
--- NOTE | 2019-07-01 06:51 | OP ---
DATE OF OPERATION: 06/30/2019 PROCEDURE: 1. Division and inset of left ear, reconstructed interpolated tubed flap. 2. Spit-thickness skin graft from left thigh to left ear. 3. Rotation scalp skin flap, reconstruction of ear flap donor site. ATTENDING SURGEON: Garcia Vazquez MD DIRECTOR EHS: None. ANESTHESIA: General endotracheal anesthesia. A total of 8 mL of 1% lidocaine with 1:100,000 epinephrine is injected locally into the operative tissues. DESCRIPTION OF PROCEDURE: Patient is seen preoperatively. Counseled on all risks, benefits, and alternatives as well as limitations of the operation. Understands and agrees to proceed. The patient is given a gram of Ancef preoperatively. DORI hose and sequential compression stockings are applied. Patient brought to the operating room and placed in a supine position. Position is carefully checked by surgical and anesthesia teams after which the patient is prepped and draped in a standard surgical fashion. Time-out is called. Patient, procedure, site, sides are verified. At this point, the flap that had been sewn to the left ear is then divided at the base of the hair-bearing scalp, and dissection is carried to the mastoid fascia maintaining a generous vascularized cuff of tissue over the previously grafted cartilage framework. The ear is elevated from its buried position. The skin flap is noted to be pink and viable without evidence congestion or ischemia. This now left a defect at the donor site of the scalp skin flap as well as a defect in the posterior sulcus of the ear. For closure of the flap donor site, a skin flap was then elevated from the postauricular scalp just posterior to the line of the superficial temporal artery. Superficial temporal artery is identified and preserved. Care is taken to preserve this as well as the superficial temporal fascia for possible temporoparietal fascial flap if necessary in the future. The skin incision for the skin rotation flap is also made along the incision line for the superficial temporal parietal fascial flap if it should be needed in the future. The elevated skin flap is then rotated into the defect and is secured with a combination of 4-0 Prolene and lam. Care is taken to maintain dissection deep to the hair follicles but superficial to the superficial temporal fascia. The postauricular sulcus as well as the posterior surface of the ear are then planned to be skin grafted. At this point, a spit-thickness skin graft is harvested from the left anterolateral thigh. This is a 3-inch width graft and 3-inch length graft with a thickness of 09/1000 of an inch. The graft is pie crusted. The graft is then secured to the posterior recess of the ear with a combination of sutures and lam to the posterior scalp. A tie over bolster is then applied with a bacitracin, Xeroform, and a series of 3-0 nylon bolstering sutures. Tissues appear pink and viable. The leg skin graft donor site is dressed with Xeroform, Telfa, ABD gauze, and Hypafix tape. Patient woken from anesthesia having tolerated procedure well. Transferred to recovery without complication. GARCIA VAZQUEZ M.D. [id number]
[2019-07-01] MEDS ORDERED: metoPROLOL SUCCINATE 25 MG TAB.SR.24H (FP) PO SCH (10:00)
[2019-07-01] MEDS ORDERED: PANTOPRAZOLE 40 MG TABLET (FP) PO SCH (10:00)
[2019-07-01] MEDS ORDERED: PARoxetine HCL 10 MG TABLET PO SCH (10:00)
[2019-07-01] MEDS ORDERED: amLODIPine BESYLATE 2.5 MG TABLET (FP) PO SCH (10:00)
--- NOTE | 2019-07-01 12:33 | PN ---
Progress Note (short form) - Note Progress Note: graft and donor site CDI. no fevers or evidence of infection Pain well controlled OK for discharge
[2019-07-01 13:40] VITALS: BP 115/52; PULSE 70; TEMP 99.3
--- NOTE | 2019-07-10 20:59 | OP ---
DATE OF OPERATION: 06/30/2019 ADDENDUM Please add to the preoperative and postoperative diagnosis: Basal cell carcinoma to skin of ear. Please add that as an addendum to the previously dictated dictation. XAVIER VAZQUEZ M.D. [id number]
== END 2019-07-01 16:44 | disposition home or self-care (01) ==
LOC: JASU-SURG 10:10 → J6S 20:32 → JASU-SURG 07-01 16:44
PROVIDERS: ATTEND Plastic Surgery
PROC: 0HR3X74 Replacement of Left Ear Skin with Autologous Tissue Substitute, Partial Thickness, External Approach (ICD-10-PCS; 2019-06-30)
PROC: 0HBJXZZ Excision of Left Upper Leg Skin, External Approach (ICD-10-PCS; 2019-06-30)
PROC: 0H8 Skin and Breast, Division (ICD-10-PCS; principal; 2019-06-30 12:00)
DX: C44.211 Basal cell carcinoma of skin of unspecified ear and external auricular canal (principal)
CPT/HCPCS: 94760

== ENCOUNTER 2019-08-01 12:47 | Emergency (ER) | payer OTHER, BC ==
--- NOTE | 2019-08-01 14:16 | PDOC ---
History of Present Illness - General Chief Complaint: Redness To Affected Area Stated Complaint: ENLARGED VEIN Time Seen by Provider: 08/01/19 14:01 History Source: Patient Exam Limitations: No Limitations - History of Present Illness Initial Comments: 08/01/19 14:11 HPI: 89yo F with PMH left leg DVT presenting with right calf painful swelling since this morning. Pt reports having a L leg stent placed 2 years ago for DVT. Briefly on Coumadin, currently on 81 ASA. This morning she awoke with baseball sized region of erythema and induration on her medial right calf. Denies fevers , chill, SOB, CP, hemoptysis. Has an RX for DVT study in hand ordered reportedly following an all day bus trip lst week / Wednesday. Denies any trauma, bites, etc to the affected area. NKDA Meds: metoprolol, pantoprazole, paroxetine, amlodipine, hyoscyamine 125, ASA 81 PMH: DVT, Mitral valve disease PSH: cholecystectomy, basal cell carcinoma left ear Past History - Travel Traveled outside of the country in the last 30 days: No Close contact w/someone who was outside of country & ill: No - Past Medical History Allergies/Adverse Reactions: Allergies Allergy/AdvReac Type Severity Reaction Status Date / Time Stock Ragweed Pollen Mixture Allergy Mild Cough Verified 06/30/19 11:01 No Known Drug Allergies Allergy Verified 06/30/19 11:01 Home Medications: Ambulatory Orders Aspirin [ASA -] 81 mg PO DAILY tab.chew 10/28/16 Amlodipine Besylate [Norvasc -] 2.5 mg PO DAILY #0 10/29/16 Pantoprazole Sodium [Protonix] 40 mg PO DAILY #0 10/29/16 Cholecalciferol (Vitamin D3) [Vitamin D3] 5,000 unit PO DAILY 09/22/17 Pyridoxine HCl (B-6) [Vitamin B6] 50 mg PO DAILY 09/22/17 Paroxetine HCl [Paxil -] 10 mg PO DAILY 11/25/18 Metoprolol Succinate [Toprol XL -] 12.5 mg PO DAILY 06/29/19 Anemia: No Asthma: No Cancer: No Cardiac Disorders: Yes (MITRAL VALVE PROLAPSE) CVA: No COPD: No CHF: No Dementia: No Diabetes: No GI Disorders: Yes (GERD) Disorders: Yes (inc at night) HTN: Yes Hypercholesterolemia: No Liver Disease: No Seizures: No Thyroid Disease: No - Surgical History Abdominal Surgery: No (OVARIAN CYSTS REMOVED) Appendectomy: No Cardiac Surgery: No Cholecystectomy: Yes Lung Surgery: No Neurologic Surgery: No Orthopedic Surgery: Yes (carpal tunnel-right) - Psycho Social/Smoking Cessation Hx Smoking History: Never smoked Have you smoked in the past 12 months: No Number of Cigarettes Smoked Daily: 0 Hx Alcohol Use: Yes (socially) Drug/Substance Use Hx: No Substance Use Type: Alcohol Hx Substance Use Treatment: No Review of Systems - Review of Systems Able to Perform ROS?: Yes Is the patient limited Chinese proficient: Yes Constitutional: No: Chills, Diaphoresis, Fever, Malaise, Night Sweats HEENTM: No: Blurred Vision, Nose Pain, Nose Congestion, Throat Swelling, Difficulty Swallowing Respiratory: No: Cough, Shortness of Breath, Wheezing, Hemoptysis Cardiac (ROS): No: Chest Pain, Edema, Irregular Heart Rate, Palpitations, Syncope, Chest Tightness ABD/GI: No: Constipated, Diarrhea, Nausea, Poor Appetite, Vomiting, Indigestion : No: Burning, Dysuria, Discharge Musculoskeletal: No: Back Pain, Joint Pain, Muscle Pain, Muscle Weakness Integumentary: Yes: See HPI, Erythema, Lesions. No: Bruising, Pruritus Neurological: No: Headache, Numbness, Tingling, Weakness Psychiatric: No: Anxiety, Depression, Stressors Endocrine: No: Excessive Sweating, Intolerance to Cold, Intolerance to Heat, Increased Thirst, Increased Urine Hematologic/Lymphatic: Yes: See HPI, Blood Clots (prior DVT). No: Anemia, Easy Bruising All Other Systems: Reviewed and Negative *Physical Exam - Physical Exam Comments: 08/01/19 14:29 Vitals reviewed, AFVSS WDWN woman, appears stated age, NAD RRR, nl s1s2, no murmurs appreciated CTABL, normal WOB, no wheezes / rales / rhonchi Soft, nontender, nondistended WWP, no clubbing / cyanosis / edema Right calf with area of redness and induration, warm, swollen, tender to light palpation, poorly defined margins, unable to palpate venous cord, more diffuse region Alert and oriented, MAEE, CN grossly intact ED Treatment Course - LABORATORY CBC & Chemistry Diagram: 08/01/19 15:15 08/01/19 15:15 Medical Decision Making - Medical Decision Making 08/01/19 14:16 89yo F with PMH left leg DVT presenting with right calf painful swelling since this morning. History notable for prior DVT, recent immobilization, Hx of cancer , swollen unilateral leg. Concerning for superficial phlebitis vs thrombophlebitis less likely cellulitis vs DVT. -CBC, CMP, PT/INR, PTT -Duplex US R leg -Tylenol for pain -Warm compress 08/01/19 16:31 -Duplex US without DVT, shows superficial thrombophlebitis in region c/w physical exam Dispo: Home Discharge - Discharge Information Problems reviewed: Yes Clinical Impression/Diagnosis: Phlebitis Condition: Improved Disposition: HOME - Admission No - Follow up/Referral - Patient Discharge Instructions Patient Printed Discharge Instructions: DI for Superficial Thrombophlebitis - Post Discharge Activity
[2019-08-01] MEDS ORDERED: KETOROLAC TROMETHAMINE 15 MG/ML VIAL IVPUSH ONE (14:34)
[2019-08-01] MEDS ORDERED: ACETAMINOPHEN 500 MG TABLET (FP) PO ONE (14:41)
[2019-08-01 14:48] VITALS: BP 154/62; PULSE 58; TEMP 98.1; BMI 25.4
[2019-08-01] MEDS ORDERED: ACETAMINOPHEN 500 MG TABLET (FP) ONE (14:48)
--- NOTE | 2019-08-01 15:02 | PDOC ---
Attending Attestation - Resident Resident Name: Jose CParviz faithiel - ED Attending Attestation I have performed the following: I have examined & evaluated the patient, The case was reviewed & discussed with the resident, I agree w/resident's findings & plan, Exceptions are as noted - HPI HPI: 08/01/19 15:00 Painful swollen nodule right proximal medial calf for several days following 2- day bus trip. History of left DVT 2 years ago, course of warfarin then DC'd, now on aspirin. No chest pain, shortness of breath, distal swelling or edema. - Physicial Exam PE: 08/01/19 15:01 Vital signs normal. Alert and oriented no acute distress No posterior calf swelling or tenderness. Homans negative. Pulses full. No distal sensory deficits. Warm, mildly erythematous nodule in the right medial upper calf suggestive of superficial phlebitis. - Medical Decision Making 08/01/19 15:01 Assessment: Superficial phlebitis. No suggestion of DVT at present, but because of the patient's history, duplex ultrasound will be performed and further evaluation pending. Plan: 08/01/19 16:30 Duplex ultrasound negative for DVT. It shows a prominent superficial phlebitis as suspected from the physical exam. Symptomatic treatment was recommended and close follow-up encouraged.
[2019-08-01 15:25] LABS: BASO % 1.1 % (0-2.0); EOS % 2.3 % (0-4.5); HEMATOCRIT 33.1 % (32.4-45.2); HEMOGLOBIN 11.1 GM/dl (10.7-15.3); LYMPH % 16.1 % (8-40); MCH 31.5 pg (25.7-33.7); MCHC 33.4 g/dl (32.0-36.0); MEAN CELL VOLUME 94.4 fl (80-96); MEAN PLT VOLUME 8.4 fl (7.5-11.1); MONO % 6.4 % (3.8-10.2); NEUT % 74.1 % (42.8-82.8); PLATELET COUNT 207 K/MM3 (134-434); RBC 3.51 M/mm3 (3.60-5.2); RDW 14.2 % (11.6-15.6); WHITE BLOOD COUNT 7.9 K/mm3 (4.0-10.8)
[2019-08-01 15:55] LABS: INR 1.1 (0.82-1.09); PROTHROMBIN TIME (PATIENT) 12.3 SEC (10.2-13.0)
[2019-08-01 15:57] LABS: ALBUMIN 3.5 g/dl (3.4-5.0); BILIRUBIN,TOTAL 0.5 mg/dl (0.2-1); CALCIUM 8.8 mg/dl (8.5-10); CREATININE 1.2 mg/dl (0.55-1.3); POTASSIUM 4.9 mmol/L (3.5-5.1); TOT PROT 6.1 g/dl (6.4-8.2)
== END 2019-08-01 16:54 | disposition home or self-care (01) ==
LOC: FER 12:47
DX: I80.9 Phlebitis and thrombophlebitis of unspecified site (principal); Z86.718 Personal history of other venous thrombosis and embolism; Z79.82 Long term (current) use of aspirin; J30.1 Allergic rhinitis due to pollen; K21.9 Gastro-esophageal reflux disease without esophagitis; I10 Essential (primary) hypertension; I34.1 Nonrheumatic mitral (valve) prolapse; N39.9 Disorder of urinary system, unspecified
CPT/HCPCS: 36415; 80053; 85025; 85610; 85730; 93970-TC; 99282-25

== ENCOUNTER 2021-01-02 07:21 | Day surgery (SDC) | payer OTHER, BC ==
[2020-12-31 16:10] VITALS: BMI 25.7
[2021-01-02] MEDS ORDERED: PROPOFOL 20 ML ONE ×2 (08:22)
[2021-01-02] MEDS ORDERED: LIDOCAINE HCL/PF 2% SDV 5ML VIAL ONE (08:22)
[2021-01-02 10:19] VITALS: TEMP 97.8
[2021-01-02 10:25] VITALS: BP 141/82; PULSE 71
== END 2021-01-02 10:15 | disposition home or self-care (01) ==
LOC: FASU-ENDO 07:21
PROVIDERS: ATTEND Internal Medicine Gastroenterology
PROC: 0DJD8ZZ Inspection of Lower Intestinal Tract, Via Natural or Artificial Opening Endoscopic (ICD-10-PCS; principal; 2021-01-02 08:00)
DX: K59.00 Constipation, unspecified (principal)

== ENCOUNTER 2021-07-07 12:25 | Inpatient (IN) | payer OTHER, BC ==
[2021-07-07 12:30] VITALS: BMI 25.0
[2021-07-07] MEDS ORDERED: ASPIRIN 81 MG CHEWABLE TABLETS PO ONE (12:56)
[2021-07-07] MEDS ORDERED: ASPIRIN 81 MG CHEWABLE TABLETS ONE (13:06)
[2021-07-07 13:11] LABS: EOS % 6.2 % (0-4.5); MEAN PLT VOLUME 9.7 fl (7.5-11.1); RDW 14.1 % (11.6-15.6)
[2021-07-07 13:20] LABS: CALCIUM 9.2 mg/dl (8.5-10)
[2021-07-07 13:24] LABS: ACTIVATED PTT 23.9 SECONDS (25.2-36.5)
[2021-07-07 13:26] LABS: ALBUMIN 4.1 g/dl (3.4-5.0); BASO % 2.3 % (0-2.0); CREATININE 1.8 mg/dl (0.55-1.3); HEMATOCRIT 32.3 % (32.4-45.2); HEMOGLOBIN 10.6 GM/dl (10.7-15.3); LYMPH % 31.5 % (8-40); MCH 31.1 pg (25.7-33.7); MCHC 32.8 g/dl (32.0-36.0); MEAN CELL VOLUME 94.6 fl (80-96); PLATELET COUNT 205 10^3/uL (134-434); RBC 3.42 M/mm3 (3.60-5.2); TOT PROT 6.6 g/dl (6.4-8.2); WHITE BLOOD COUNT 5.5 K/mm3 (4.0-10.8)
[2021-07-07 13:28] LABS: INR 1.03 (0.82-1.09); PROTHROMBIN TIME (PATIENT) 11.5 SEC (10.2-13.0)
[2021-07-07] MEDS ORDERED: MAG HYDROX/AL HYDROX/SIMETH 30 ML UNIT-DOSE CUP ONE (13:45)
[2021-07-07] MEDS ORDERED: FAMOTIDINE 20 MG/50 ML IVPB 20 MG/50 ML MG IVPB ONE ×2 (13:45→14:00)
[2021-07-07] MEDS ORDERED: MAG HYDROX/AL HYDROX/SIMETH 30 ML UNIT-DOSE CUP PO ONE (14:00)
[2021-07-07] MEDS ORDERED: NITROGLYCERIN SUBLINGUAL 1/150 0.4 MG TAB SL ONE (14:27)
[2021-07-07] MEDS ORDERED: NITROGLYCERIN SUBLINGUAL 1/150 0.4 MG TAB ONE (14:28)
[2021-07-07] MEDS ORDERED: HEPARIN NA (PORCINE) 5,000 UNITS/ML 1ML VIAL IVPUSH ONE (16:11)
[2021-07-07] MEDS ORDERED: HEPARIN INFUSION - 25,000 UNITS/500 ML INFUS.BAG IVPB ONE (16:18)
[2021-07-07] MEDS ORDERED: HEPARIN NA (PORCINE) 5,000 UNITS/ML 1ML VIAL ONE (16:18)
[2021-07-07] MEDS: HEPARIN - 25,000 UNIT in SODIUM CHLORIDE 495 ML IV SCH (16:25)
[2021-07-07] MEDS ORDERED: ATORVASTATIN CA 80 MG TABLET (FP) PO ONE (18:41)
[2021-07-07] MEDS ORDERED: METOPROLOL TARTRATE 5 MG/5 ML VIAL IVPUSH SCH (18:45)
[2021-07-07] MEDS ORDERED: ATORVASTATIN CA 80 MG TABLET (FP) ONE (19:21)
[2021-07-07] MEDS ORDERED: METOPROLOL TARTRATE 5 MG/5 ML VIAL ONE (19:22)
[2021-07-08 08:02] LABS: HEMATOCRIT 29.5 % (32.4-45.2); HEMOGLOBIN 10.2 GM/dL (10.7-15.3); MCH 32.2 pg (25.7-33.7); MCHC 34.7 g/dl (32.0-36.0); MEAN PLT VOLUME 9.7 fl (7.5-11.1); PLATELET COUNT 163 10^3/uL (134-434); RBC 3.18 M/mm3 (3.60-5.2); RDW 14.8 % (11.6-15.6); WHITE BLOOD COUNT 6.5 K/mm3 (4.0-10.0)
[2021-07-08 08:24] LABS: INR 1.08 (0.83-1.09); PROTHROMBIN TIME (PATIENT) 13.2 SEC (9.7-13.0)
[2021-07-08 09:24] LABS: ALBUMIN 3.1 g/dl (3.4-5.0); ALK PHOS 92 U/L (45-117); ANION GAP 9 MMOL/L (8-16); BILIRUBIN,TOTAL 0.8 mg/dL (0.2-1); BLOOD UREA NITROGEN 30.6 mg/dL (7-18); CALCIUM 9.2 mg/dL (8.5-10.1); CHLORIDE 113 mmol/L (98-107); CHOLESTEROL 126 mg/dL (50-200); CO2 23 mmol/L (21-32); CREATININE 1.6 mg/dL (0.55-1.3); GLUCOSE,RANDOM 111 mg/dL (74-106); HDL CHOLESTEROL 68 mg/dL (40-60); IRON SERUM 90 ug/dL (50-175); LDL CHOLESTEROL (ONLY SJRH) 47 mg/dL (5-100); MAGNESIUM 1.9 mg/dL (1.8-2.4); PHOSPHOROUS 3.6 mg/dL (2.5-4.9); SGOT/AST 39 U/L (15-37); SGPT/ALT 37 U/L (13-61); SODIUM 144 mmol/L (136-145); TOTAL IRON BINDING CAPACITY 221 ug/dL (250-450); TRIGLYCERIDES 49 mg/dL (0-150)
[2021-07-08] MEDS ORDERED: metoPROLOL SUCCINATE 25 MG TAB.SR.24H (FP) PO SCH (10:00)
[2021-07-08] MEDS ORDERED: PT OWN MED DRAWER 7, Y5N ONE ×2 (10:08→12:15)
[2021-07-08] MEDS: ASPIRIN 81 MG CHEWABLE TABLETS PO SCH (10:15)
[2021-07-08] MEDS: PARoxetine HCL 10 MG TABLET PO SCH (10:16)
[2021-07-08] MEDS: PYRIDOXINE HCL (B-6) 50 MG TABLET (FP) PO SCH (10:16)
[2021-07-08] MEDS: PANTOPRAZOLE 40 MG TABLET PO SCH (10:16)
[2021-07-08] MEDS: VALSARTAN 40 MG TABLET PO SCH (12:16)
[2021-07-08] MEDS: CLOPIDOGREL BISULFATE 75 MG TABLET (FP) PO SCH (12:16)
[2021-07-08] MEDS: CHOLECALCIFEROL (VIT D3) 5000 UNITS (125 MCG) CAP PO SCH ×2 (12:24→12:35)
[2021-07-08 16:18] LABS: INR 1.08 (0.83-1.09); PROTHROMBIN TIME (PATIENT) 13.3 SEC (9.7-13.0)
[2021-07-08 16:21] LABS: ACTIVATED PTT 72.8 SECONDS (25.2-36.5)
[2021-07-08] MEDS: ATORVASTATIN CA 80 MG TABLET (FP) PO SCH (21:43)
[2021-07-08] MEDS ORDERED: ATORVASTATIN CA 10 MG TABLET (FP) PO SCH (22:00)
[2021-07-09] MEDS: HEPARIN - 25,000 UNIT in SODIUM CHLORIDE 495 ML IV SCH (06:29)
[2021-07-09 08:58] LABS: HEMATOCRIT 29.9 % (32.4-45.2); HEMOGLOBIN 10.2 GM/dL (10.7-15.3); MCH 31.9 pg (25.7-33.7); MCHC 34.2 g/dl (32.0-36.0); MEAN PLT VOLUME 9.5 fl (7.5-11.1); PLATELET COUNT 176 10^3/uL (134-434); RBC 3.21 M/mm3 (3.60-5.2); RDW 14.8 % (11.6-15.6); WHITE BLOOD COUNT 5.5 K/mm3 (4.0-10.0)
[2021-07-09 09:23] LABS: BLOOD UREA NITROGEN 25.1 mg/dL (7-18); CALCIUM 8.7 mg/dL (8.5-10.1)
[2021-07-09 09:27] LABS: CREATININE 1.4 mg/dL (0.55-1.3)
[2021-07-09 09:28] LABS: BILIRUBIN,TOTAL 0.8 mg/dL (0.2-1); TOT PROT 5.8 g/dl (6.4-8.2)
[2021-07-09] MEDS ORDERED: PT OWN MED DRAWER 7, Y5N ONE (09:46)
[2021-07-09] MEDS: PANTOPRAZOLE 40 MG TABLET PO SCH (09:52)
[2021-07-09] MEDS: CLOPIDOGREL BISULFATE 75 MG TABLET (FP) PO SCH (09:52)
[2021-07-09] MEDS: VALSARTAN 40 MG TABLET PO SCH (09:52)
[2021-07-09] MEDS: ASPIRIN 81 MG CHEWABLE TABLETS PO SCH (09:52)
[2021-07-09] MEDS: CHOLECALCIFEROL (VIT D3) 5000 UNITS (125 MCG) CAP PO SCH (09:52)
[2021-07-09] MEDS: PARoxetine HCL 10 MG TABLET PO SCH (09:53)
[2021-07-09] MEDS: PYRIDOXINE HCL (B-6) 50 MG TABLET (FP) PO SCH (09:53)
[2021-07-09] MEDS ORDERED: VALSARTAN 80 MG TABLET PO SCH (11:48)
[2021-07-09] MEDS ORDERED: VALSARTAN 40 MG TABLET PO ONE (11:48)
[2021-07-09 20:38] LABS: EPI CELLS 15 /uL (0-25.1); HYALINE CASTS 0 /uL (0-3.1); PH,URINE 5.5 (5.0-8.0); URINE APPEARANCE CLEAR; URINE BACTERIA 31 /uL (0-1359); URINE BILIRUBIN NEGATIVE (NEGATIVE); URINE COLOR YELLOW; URINE GLUCOSE (UA) NEGATIVE (NEGATIVE); URINE KETONE NEGATIVE (NEGATIVE); URINE LEUK ESTERASE 2+ (NEGATIVE); URINE NITRITE NEGATIVE (NEGATIVE); URINE PROTEIN NEGATIVE (NEGATIVE); URINE RBC 3 /uL (0-23.9); URINE UROBILINOGEN 0.2 mg/dL (0.2-1.0); URINE WBC 56 /uL (0-25.8)
[2021-07-09] MEDS: ATORVASTATIN CA 80 MG TABLET (FP) PO SCH (22:50)
[2021-07-10 08:41] LABS: BLOOD UREA NITROGEN 24.8 mg/dL (7-18); CALCIUM 8.9 mg/dL (8.5-10.1)
[2021-07-10 08:46] LABS: CREATININE 1.5 mg/dL (0.55-1.3)
[2021-07-10] MEDS ORDERED: REGADENOSON 0.4 MG/5 ML PRE-FILLED SYRINGE IVPUSH ONE ×2 (09:36→09:45)
[2021-07-10] MEDS ORDERED: PT OWN MED DRAWER 7, Y5N ONE (10:10)
[2021-07-10 12:32] VITALS: BP 175/83; PULSE 58; TEMP 97.9
[2021-07-10] MEDS: CLOPIDOGREL BISULFATE 75 MG TABLET (FP) PO SCH (12:45)
[2021-07-10] MEDS: ASPIRIN 81 MG CHEWABLE TABLETS PO SCH (12:45)
[2021-07-10] MEDS: PARoxetine HCL 10 MG TABLET PO SCH (12:45)
[2021-07-10] MEDS: PYRIDOXINE HCL (B-6) 50 MG TABLET (FP) PO SCH (12:45)
[2021-07-10] MEDS: CHOLECALCIFEROL (VIT D3) 5000 UNITS (125 MCG) CAP PO SCH (12:46)
[2021-07-10] MEDS: PANTOPRAZOLE 40 MG TABLET PO SCH (12:46)
[2021-07-10 16:36] LABS: HEMATOCRIT 31.9 % (32.4-45.2); HEMOGLOBIN 10.8 GM/dL (10.7-15.3); MCH 31.1 pg (25.7-33.7); MCHC 33.8 g/dl (32.0-36.0); MEAN CELL VOLUME 92.1 fl (80-96); PLATELET COUNT 195 10^3/uL (134-434); RBC 3.46 M/mm3 (3.60-5.2); RDW 14.3 % (11.6-15.6); WHITE BLOOD COUNT 7.1 K/mm3 (4.0-10.0)
== END 2021-07-10 19:06 | disposition home or self-care (01) | DRG 281 ==
LOC: FER 12:25 → J4W 07-08 04:05
PROVIDERS: ADMIT Internal Medicine; ATTEND Internal Medicine
DX: I21.4 Non-ST elevation (NSTEMI) myocardial infarction (principal); I50.32 Chronic diastolic (congestive) heart failure; N17.9 Acute kidney failure, unspecified; I13.0 Hypertensive heart and chronic kidney disease with heart failure and stage 1 through stage 4 chronic kidney disease, or unspecified chronic kidney disease; N13.30 Unspecified hydronephrosis; N18.9 Chronic kidney disease, unspecified; D63.1 Anemia in chronic kidney disease; I48.91 Unspecified atrial fibrillation; E78.5 Hyperlipidemia, unspecified; K21.9 Gastro-esophageal reflux disease without esophagitis; I25.10 Atherosclerotic heart disease of native coronary artery without angina pectoris; F32.9 Major depressive disorder, single episode, unspecified; I27.20 Pulmonary hypertension, unspecified; R07.89 Other chest pain
CPT/HCPCS: 36415; 71045-TC-FY; 71275-TC; 76775-TC; 78452-TC; 80048; 80053; 80061; 81003; 82550; 82553; 82570; 82728; 83036; 83540; 83550; 83735; 84100; 84156; 84443; 84466; 84484; 85025; 85027; 85045; 85379; 85610; 85730; 93005; 93010; 93017; 93306-TC; 99291; A9502; C1887; C9803; J1644; J2785; U0003; U0005